=== PATIENT | male | born 1965 | race Caucasian/White ===

== ENCOUNTER → 2024-01-17 | Outpatient (CLI) | payer OTHER ==
[2024-01-17 09:03] VITALS: BP 118/71; PULSE 78; RESP 17
--- NOTE | 2024-01-17 14:42 | P.PAINPG ---
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 Pt states pain level is provoked at 8 /10 in intensity, constant, localized in the cervical spine, predominantly axial, sharp in character w occasional shooting pain towards the BL shoulders. Pain is provoked by head movement and PT x 2 wks in Sep 2023 which provoked pain. Pain is alleviated by physician guided home exercises 4 times weekly since Sep 2023, medications, manual massage, repositioning and rest . PMH: OA, HTN, Hyperlipidemia, NIDDM II, GERD, BPH, Vitamin D Deficiency PSH: Appendectomy (1974), R Digit Amputation x2 (1975), Cholecystectomy (1989), L Breast Biopsy (2009), Hernia Repair x2 (2022) SH: Negative x3 FH: Non contributory All: See list Meds: See list including Tyl, Celebrex, Lyrica REVIEW OF ORGAN SYSTEMS: CONSTITUTIONAL: No fevers or chills. No recent weight loss. NEUROLOGICAL: + numbness and tingling along the distal extremities. No seizure disorders or headaches. MUSCULOSKELETAL: + pain PSYCHIATRIC: Denies current depression or suicidal thoughts. Physical Examinations : Constitutional : Cooperative , not in acute distress . Neurologic : Cranial nerve II to XII intact. No focal neurological deficits. Psychiatric : alert & oriented x 3. Matching mood & appropriate affect. Judgment & insight intact. Musculoskeletal : Cervical Spine Motor strength in the deltoid and biceps: Normal right side. Normal Left side Motor strength biceps and the wrist extensors: Normal right side . Normal left side Motor strength in the triceps muscle: Normal right side. Normal left side Deep tendon reflexes: Normal at the biceps. Normal at Brachioradialis. Normal at triceps Vertebral body tenderness to deep palpation over Cervical facet loading test: positive bilaterally Spurling test: positive bilaterally Neck distraction test: positive b ilaterally Saad sign: positive bilaterally Lumbar spine Motor strength lower extremities ,thigh and legs 5/5 Right side , 5/5 Left side Deep tendon reflexes : Normal Knee Jerk. Normal Ankle Jerk Vertebral body tenderness over C6 Marquez Test positive C6-C7 L > R Lumbar facet Loading Test: positive Right / positive Left Range of motion of the lumbar spine Flexion 30 degrees, extension 10 degrees Straight Leg Raise test: Left/ Right positive at degrees Jason test: positive right / positive left. Severe tenderness over the Sacroiliac joint on the Right / Left sides Gaenslen test: positive bilaterally Seated flexion test: positive bilaterally. Sacral spine : Severe tenderness over the Sacroiliac joint: right side / left side Range of motion: Flexion of the lumbar spine <60 degrees Range of motion: Extension of the lumbar spine <20 degrees Gaenslen's Test positive Jason test: positive right side / left side Thigh Thrust Test Sacral Thrust Test Imaging: MRI non contrast cervical spine from 12/06/23 reviewed Assessment/ Plan : Cervical radiculopathy Recommendation of FRANCHESCA .C6-C7 #1 Risks, benefits of procedure discussed and patient verbalized understanding. Admits to anti- coagulant use or medical history of diabetes. Protocol for discontinuation/ continuation of medications zackery procedure discussed. All questions answered. I have spent greater than 30 minutes on patient care today. Dr Grover was available by phone for the evaluation of this patient. The time was used to review the medical records including relevant urine studies and Prescription history (MAPs), review of the available imaging, evaluation and examination of the patient, coordination of care with the medical staff and if applicable referring physicians, as well as creation of the medical record Controlled Substance Measures - Controlled Substance Measures Is patient prescribed a controlled substance at discharge?: No
== END ==
LOC: PNWHC3 08:11
PROVIDERS: ATTEND Specialist
DX: M47.892 Other spondylosis, cervical region
CPT/HCPCS: 99202

== ENCOUNTER 2024-02-02 06:23 | Day surgery (SDC) | payer OTHER ==
[2024-02-02] MEDS ORDERED: LACTATED RINGERS 1,000 ML IV SCH (07:15)
[2024-02-02 07:34] VITALS: TEMP 98.1
[2024-02-02 07:39] LABS: Glucose,Whole Blood 277 mg/dL (70-110)
[2024-02-02] MEDS: INSULIN ASPART (NovoLOG) 100 UNIT/ML VIAL SQ ONE (07:47)
[2024-02-02] MEDS ORDERED: IOPAMIDOL M200 10 ML VIAL ONE (07:54)
[2024-02-02] MEDS ORDERED: DEXAMETHASONE SOD PHOSPHATE 10 MG/ML 1 ML VIAL ONE (07:54)
--- NOTE | 2024-02-02 08:09 | P.PCN ---
Date of Procedure: 02/02/24 Description of Procedure: Pre- and Post-operative Diagnosis: Cervical radiculopathy, and cervical spondylosis without myelopathy Procedure: C6-C7 Inter-Laminar Cervical Epidural Steroid Injection under biplanar fluoroscopy Surgeon: Amber Lopez Anesthesia: Local: 1% Lidocaine, IV sedation : None. Complications: None. Estimated blood loss: None Specimens removed: None Fluoroscopic image: saved to patient electronic medical records. Indications for Procedure: The patient has been suffering from neck pain and pain radiating to the upper extremity . Inadequate pain control with pharmacologic regimen. An inter-laminar approach cervical epidural steroid injection was scheduled for the patient. Procedure and Findings: The patient was seen and examined in the holding area. The written informed consent was obtained after explaining the risks, benefits, alternatives of the procedure to the patient. The patient was brought to the procedure room and was placed in the prone position on the operating table. A pillow was placed under the upper chest. Standard anesthesia monitoring was done through out the procedure. Timeout was completed. The skin preparation was done with ChloraPrep 1 and draping was done in usual sterile fashion. Sterile technique was observed throughout the procedure. Under fluoroscopic guidance, the C6-C7 inter-laminar space was identified. 4 ml of 1% Lidocaine was injected with a 25 gauge needle to achieve adequate local anesthesia of the skin and subcutaneous tissue. A 20 gauge, 3.5 inch Tuohy type epidural needle was placed and gradually advanced up to the epidural space using loss of resistance technique and fluoroscopic guidance. No paresthesia was noted. A negative aspiration was confirmed and then 1 ml [id number] was injected. A good dye spread was seen in the epidural space and it was negative for any intrathecal, intraneural or intravascular spread. A total of 5 ml solution containing 10 mg Dexamethasone, and 4 ml preservative-free Normal Saline was injected slowly with intermittent aspiration.. The needle was removed intact, area was cleaned and bandage was applied. Disposition : The patient tolerated the procedure very well. The patient was transferred to the recovery room and remained stable until discharged home. The patient was given detailed discharge instructions for bleeding, infection, increased pain at the injection site, and was advised to seek immediate medical attention should significant side effects develop. The patient will be followed up with our Pain Clinic within 4 weeks duration. Note: History of diabetes, and his morning blood sugar 277 mg %. He did not take his morning insulin dose after his breakfast today. He was given 4 units of regular insulin in the preop. And recommended him to monitor his blood sugars for next 1 week, and recommended to adjust insulin accordingly to control his blood sugars. Discussed with the patient regarding the cancellation of the procedure but he would like to proceed for the procedure and to see if it is helpful, so that he can make a decision to avoid cervical spine surgery.
[2024-02-02 08:19] LABS: Glucose,Whole Blood 267 mg/dL (70-110)
--- NOTE | 2024-02-02 08:33 | FL ---
EXAMINATION TYPE: FL guided pain mgmt statistic DATE OF EXAM: 02/02/2024 8:11 AM COMPARISON: Pre Operative Images if available both CT/MRI or plain film CLINICAL INDICATION: Male, 58 years old with history of M54.12; TECHNIQUE: FL guided pain mgmt statistic, multiple fluoroscopic images provided for procedure. Total fluoroscopy time: 14.0 seconds Total submitted images to PACS: 4 DAP: 0.19149 mGym2 Gycm2 uGym2 cGycm2 or equivalent. FINDINGS: Fluoroscopic images during injection for pain management demonstrate multilevel degeneration changes throughout the spine. No evidence for fracture. No acute process identified. IMPRESSION: 1. No evidence for intraoperative complication. 2. Please see the operative/procedural note for further details. [facility], , 02/02/2024 8:31 AM
[2024-02-02 09:01] VITALS: BP 158/84; PULSE 74; RESP 18
== END 2024-02-02 09:07 | disposition home or self-care (01) ==
LOC: ORPAIN 06:23
DX: M54.12 Radiculopathy, cervical region
CPT/HCPCS: 62321

== ENCOUNTER → 2024-02-22 | Outpatient (CLI) | payer OTHER ==
[2024-02-22 09:21] VITALS: BP 160/83; PULSE 87; RESP 16
--- NOTE | 2024-02-22 14:46 | P.PAINPG ---
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 Pt states he experienced 30 % pain relief x 3 wks s/p procedure. Pt states pain level is provoked at 8 /10 in intensity, constant, localized in the cervical spine, predominantly axial, sharp in character w occasional shooting pain towards the BL shoulders. Pain is provoked by head movement and PT x 2 wks in Sep 2023 which provoked pain. Pain is alleviated by physician guided home exercises 4 times weekly since Sep 2023, medications, manual massage, repositioning and rest . Interventional procedures include FRANCHESCA C6-C7 x1 Medications include Tyl, Celebrex REVIEW OF ORGAN SYSTEMS: CONSTITUTIONAL: No fevers or chills. No recent weight loss. NEUROLOGICAL: + numbness and tingling along the distal extremities. No seizure disorders or headaches. MUSCULOSKELETAL: + pain PSYCHIATRIC: Denies current depression or suicidal thoughts. Physical Examinations : Constitutional : Cooperative , not in acute distress . Neurologic : Cranial nerve II to XII intact. No focal neurological deficits. Psychiatric : alert & oriented x 3. Matching mood & appropriate affect. Judgment & insight intact. Musculoskeletal : Cervical Spine Motor strength in the deltoid and biceps: Normal right side. Normal Left side Motor strength biceps and the wrist extensors: Normal right side . Normal left side Motor strength in the triceps muscle: Normal right side. Normal left side Deep tendon reflexes: Normal at the biceps. Normal at Brachioradialis. Normal at triceps Vertebral body tenderness to deep palpation over Cervical facet loading test: positive bilaterally C4-C5, C5-C6 Spurling test: positive bilaterally Neck distraction test: positive bilaterally Saad sign: positive bilaterally Lumbar spine Motor strength lower extremities ,thigh and legs 5/5 Right side , 5/5 Left side Deep tendon reflexes : Normal Knee Jerk. Normal Ankle Jerk Vertebral body tenderness over C6 Marquez Test positive C6-C7 L > R Lumbar facet Loading Test: positive Right / positive Left Range of motion of the lumbar spine Flexion 30 degrees, extension 10 degrees Straight Leg Raise test: Left/ Right positive at degrees Jason test: positive right / positive left. Severe tenderness over the Sacroiliac joint on the Right / Left sides Gaenslen test: positive bilaterally Seated flexion test: positive bilaterally. Sacral spine : Severe tenderness over the Sacroiliac joint: right side / left side Range of motion: Flexion of the lumbar spine <60 degrees Range of motion: Extension of the lumbar spine <20 degrees Gaenslen's Test positive Jason test: positive right side / left side Thigh Thrust Test Sacral Thrust Test Imaging: MRI non contrast cervical spine from 12/06/23 reviewed Assessment/ Plan : Cervical radiculopathy Recommendation of HAYLEY MBB C4-C5/ C5-C6 #1. Risks, benefits of procedure discussed and patient verbalized understanding. Admits to anti- coagulant use or medical history of diabetes. Protocol for discontinuation/ continuation of medications zackery procedure discussed. Minimal anesthesia including Fentanyl and Versed if clinically indicated. All questions answered. I have spent greater than 30 minutes on patient care today. Dr Grover was available by phone for the evaluation of this patient. The time was used to review the medical records including relevant urine studies and Prescription history (MAPs), review of the available imaging, evaluation and examination of the patient, coordination of care with the medical staff and if applicable referring physicians, as well as creation of the medical record PQRS Narrative: Hx Alcohol Use (MH) No Home Medications: Ambulatory Orders Aspirin [[place] Aspirin EC] 81 mg PO DAILY 01/31/24 Atorvastatin Calcium 40 mg PO HS 01/31/24 Azelastine HCl [Astepro] 1 spray INHALATION DAILY 01/31/24 Celecoxib [CeleBREX] 200 mg PO DAILY 01/31/24 Cholecalciferol [Vitamin D3 (25 Mcg = 1000 Iu)] 1 tab PO DAILY 01/31/24 Dicyclomine HCl 20 mg PO BID 01/31/24 Dulaglutide [Trulicity] 0.75 mg SQ Q7D 01/31/24 Dupilumab [Dupixent Pen] 300 mg SQ Q14D 01/31/24 Famotidine 40 mg PO HS 01/31/24 Insulin Glargine,Hum.rec.anlog [Lantus Solostar Pen] 60 units SQ QAM 01/31/24 Insulin Lispro [humaLOG Kwikpen] 15 units SQ BID 01/31/24 Losartan/Hydrochlorothiazide [Hyzaar 100-25 Tablet] 1 tab PO QAM 01/31/24 Magnesium 1 tab PO DAILY 01/31/24 Metoprolol Succinate (ER) [Toprol XL] 100 mg PO QAM 01/31/24 NIFEdipine [NIFEdipine ER (Osmotic)] 60 mg PO DAILY 01/31/24 Pantoprazole [Protonix] 1 tab PO HS 01/31/24 Sildenafil Citrate 50 mg PO DAILY PRN 01/31/24 Controlled Substance Measures - Controlled Substance Measures Is patient prescribed a controlled substance at discharge?: No
== END ==
LOC: PNWHC3 08:24
PROVIDERS: ATTEND Specialist
CPT/HCPCS: 99211

== ENCOUNTER 2024-03-08 06:42 | Day surgery (SDC) | payer OTHER ==
[2024-03-08 07:36] VITALS: RESP 16; TEMP 96.8
[2024-03-08] MEDS: LACTATED RINGERS 1,000 ML IV SCH (07:50)
[2024-03-08] MEDS: IV FLUID CONTINUATION 1,000 ML IV ONE (07:50)
[2024-03-08] MEDS ORDERED: ROPIVACAINE 5MG/ML 20ML VIAL ONE (08:00)
[2024-03-08] MEDS ORDERED: MIDAZOLAM 2 MG/2 ML VIAL ONE (08:00)
[2024-03-08 08:11] LABS: Glucose,Whole Blood 141 mg/dL (70-110)
--- NOTE | 2024-03-08 08:24 | P.PCN ---
Date of Procedure: 03/08/24 Surgeon: Wm Lion Pathology: none sent Condition: stable Disposition: PACU Description of Procedure: PROCEDURE: Bilateral medial branch block for the medial branches: C4,C5 and C6 with Fluroscopy [place] Diagnosis: Cervical spondylosis without myelopathy ANESTHESIA: Local with 1% lidocaine; IV moderate conscious sedation using 3 mg of Versed only EBL: Minimal PROCEDURE INDICATION: The patient with neck pain secondary to cervical arthropathy who had more than 50% relief of her pain with previous diagnostic cervical medial branch block. PROCEDURE DESCRIPTION / TECHNIQUE: The patient was seen and identified in the preoperative area. Risks, benefits, complications, and alternatives were discussed with the patient, the patient agreed to proceed with the procedure and signed the consent. IV was started. Vital signs remained stable throughout the procedure. Patient was taken to the OR and time out was completed. The patient was placed in the supine position on the procedure table. The cervical area was prepped and draped in the usual sterile fashion. Critical pause was taken. Vital signs were closely monitored during the procedure. Conscious sedation was used during the procedure to decrease patients anxiety. Using cross-table lateral fluoroscopy, the center of the trapezoid-shaped cervical pillars of C4, C5 and C6 were identified, marked, and localized with 1% lidocaine. Subsequently, a 22 guage3-1/2 inch Quincke spinal needle was advanced guided by fluoroscopy to the target points mentioned above. after contacting bone at the above-mentioned target points I injected 0.5 MLS of ropivacaine 0.5% at each level. [place] were removed. Skin was cleansed and bandages were applied. COMPLICATIONS: No acute complications. COMMENTS: A copy of needle placement was saved to the C-arm machine at the radiology department. DISPOSITION / PLANS: The patient was placed in a supine position and transferred to the recovery area in a stable condition for observation and was discharged from the recovery room after meeting discharge criteria. Home discharge instructions given to the patient by the staff.
[2024-03-08] MEDS: IV FLUID CONTINUATION 700 ML IV ONE (08:27)
--- NOTE | 2024-03-08 08:36 | FL ---
EXAMINATION TYPE: FL guided pain mgmt statistic DATE OF EXAM: 03/08/2024 HISTORY: Fluoroscopy time Total dose area product (DAP) in uGy*m?, mGy*cm? (or similar): 0.95845 IMPRESSION: 1. Fluoroscopy time. [facility], , 03/08/2024 8:33 AM
[2024-03-08 08:48] VITALS: BP 133/80; PULSE 71
== END 2024-03-08 09:01 | disposition home or self-care (01) ==
LOC: ORPAIN 06:42
PROVIDERS: ATTEND Anesthesiology
DX: M47.812 Spondylosis without myelopathy or radiculopathy, cervical region (principal); E11.9 Type 2 diabetes mellitus without complications; Z79.1 Long term (current) use of non-steroidal anti-inflammatories (NSAID); Z88.0 Allergy status to penicillin; Z88.2 Allergy status to sulfonamides; Z91.030 Bee allergy status; Z88.8 Allergy status to other drugs, medicaments and biological substances; Z79.899 Other long term (current) drug therapy
CPT/HCPCS: 64490; 64491 ×2; J2250; J2795; 99152

== ENCOUNTER → 2024-04-01 | Outpatient (CLI) | payer OTHER ==
[2024-04-01 08:57] VITALS: BP 165/89; PULSE 90; RESP 16
--- NOTE | 2024-04-01 16:19 | P.PAINPG ---
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 Pt states he experienced 50 % pain relief x 8 hr s/p procedure. Pt states pain level is provoked at 8 /10 in intensity, constant, localized in the cervical spine, predominantly axial, sharp in character w occasional shooting pain towards the BL shoulders. Pain is provoked by head movement and PT x 2 wks in Sep 2023 which provoked pain. Pain is alleviated by physician guided home exercises 4 times weekly since Sep 2023, medications, manual massage, repositioning and rest . Interventional procedures include FRANCHESCA C6-C7 x1, BL MBB C4-C5/ C5-C6 x1 Medications include Tyl, Celebrex REVIEW OF ORGAN SYSTEMS: CONSTITUTIONAL: No fevers or chills. No recent weight loss. NEUROLOGICAL: + numbness and tingling along the distal extremities. No seizure disorders or headaches. MUSCULOSKELETAL: + pain PSYCHIATRIC: Denies current depression or suicidal thoughts. Physical Examinations : Constitutional : Cooperative , not in acute distress . Neurologic : Cranial nerve II to XII intact. No focal neurological deficits. Psychiatric : alert & oriented x 3. Matching mood & appropriate affect. Judgment & insight intact. Musculoskeletal : Cervical Spine Motor strength in the deltoid and biceps: Normal right side. Normal Left side Motor strength biceps and the wrist extensors: Normal right side . Normal left side Motor strength in the triceps muscle: Normal right side. Normal left side Deep tendon reflexes: Normal at the biceps. Normal at Brachioradialis. Normal at triceps Vertebral body tenderness to deep palpation over Cervical facet loading test: positive bilaterally C4-C5, C5-C6 Spurling test: positive bilaterally Neck distraction test: positive bilaterally Saad sign: positive bilaterally Lumbar spine Motor strength lower extremities ,thigh and legs 5/5 Right side , 5/5 Left side Deep tendon reflexes : Normal Knee Jerk. Normal Ankle Jerk Vertebral body tenderness over C6 Marquez Test positive C6-C7 L > R Lumbar facet Loading Test: positive Right / positive Left Range of motion of the lumbar spine Flexion 30 degrees, extension 10 degrees Straight Leg Raise test: Left/ Right positive at degrees Jason test: positive right / positive left. Severe tenderness over the Sacroiliac joint on the Right / Left sides Gaenslen test: positive bilaterally Seated flexion test: positive bilaterally. Sacral spine : Severe tenderness over the Sacroiliac joint: right side / left side Range of motion: Flexion of the lumbar spine <60 degrees Range of motion: Extension of the lumbar spine <20 degrees Gaenslen's Test positive Jason test: positive right side / le ft side Thigh Thrust Test Sacral Thrust Test Imaging: MRI non contrast cervical spine from 12/06/23 reviewed Assessment/ Plan : Cervical radiculopathy Will follow up w Dr Dong on 04/03/24 to explore additional treatment options. All questions answered. I have spent greater than 30 minutes on patient care today. Dr Grover was available by phone for the evaluation of this patient. The time was used to review the medical records including relevant urine studies and Prescription history (MAPs), review of the available imaging, evaluation and examination of the patient, coordination of care with the medical staff and if applicable referring physicians, as well as creation of the medical record PQRS Narrative: Hx Alcohol Use (MH) No Home Medications: Ambulatory Orders Aspirin [[place] Aspirin EC] 81 mg PO DAILY 01/31/24 Atorvastatin Calcium 40 mg PO HS 01/31/24 Azelastine HCl [Astepro] 1 spray INHALATION BID 01/31/24 Cholecalciferol [Vitamin D3 (25 Mcg = 1000 Iu)] 1 tab PO DAILY 01/31/24 Dicyclomine HCl 20 mg PO BID 01/31/24 Dulaglutide [Trulicity] 0.75 mg SQ Q7D 01/31/24 Dupilumab [Dupixent Pen] 300 mg SQ Q14D 01/31/24 Famotidine 40 mg PO HS 01/31/24 Insulin Glargine,Hum.rec.anlog [Lantus Solostar Pen] 60 units SQ QAM 01/31/24 Insulin Lispro [humaLOG Kwikpen] 15 units SQ BID 01/31/24 Losartan/Hydrochlorothiazide [Hyzaar 100-25 Tablet] 1 tab PO QAM 01/31/24 Magnesium 1 tab PO DAILY 01/31/24 Metoprolol Succinate (ER) [Toprol XL] 100 mg PO QAM 01/31/24 NIFEdipine [NIFEdipine ER (Osmotic)] 60 mg PO DAILY 01/31/24 Pantoprazole [Protonix] 1 tab PO HS 01/31/24 Sildenafil Citrate 50 mg PO DAILY PRN 01/31/24 Albuterol Inhaler [Ventolin Hfa Inhaler] 90 mcg IH DAILY PRN 03/08/24 Albuterol Nebulized [Ventolin Nebulized] 2.5 mg INHALATION Q6H 03/08/24 Celecoxib 200 mg PO BID 03/08/24 Cetirizine HCl 10 mg PO DAILY 03/08/24 Clotrimazole [Clotrimazole 1% Top Soln] 1 applic TOPICAL BID 03/08/24 Cyclobenzaprine [Flexeril] 5 mg PO TID PRN 03/08/24 EPINEPHrine (Auto Inject) [Epipen] 0.3 mg IM ONCE PRN 03/08/24 Ezetimibe [Zetia] 10 mg PO DAILY 03/08/24 Meclizine [Antivert] 25 mg PO TID PRN 03/08/24 Mupirocin 2% Oint [Bactroban 2% Oint] 1 applic NASAL BID 03/08/24 Ondansetron [Zofran] 4 mg PO QID PRN 03/08/24 Orphenadrine Citrate [Orphenadrine Citrate ER] 100 mg PO BID 03/08/24 Pioglitazone [Actos] 15 mg PO DAILY 03/08/24 Pregabalin 50 mg PO BID 03/08/24 Spironolactone 50 mg PO DAILY 03/08/24 Tamsulosin [Flomax] 0.4 mg PO DAILY 03/08/24 cloNIDine HCL 0.2 mg PO BID 03/08/24 hydrOXYzine HCL [Hydroxyzine HCl] 25 mg PO HS 03/08/24 hydroCHLOROthiazide 25 mg PO DAILY 03/08/24 traMADol HCl [Ultram] 50 mg PO Q6HR PRN 03/08/24 Controlled Substance Measures - Controlled Substance Measures Is patient prescribed a controlled substance at discharge?: No
== END ==
LOC: PNWHC3 08:16
PROVIDERS: ATTEND Specialist
DX: M47.22 Other spondylosis with radiculopathy, cervical region (principal); Z91.030 Bee allergy status; Z88.0 Allergy status to penicillin; Z88.1 Allergy status to other antibiotic agents; Z88.2 Allergy status to sulfonamides; Z88.8 Allergy status to other drugs, medicaments and biological substances
CPT/HCPCS: 99211

== ENCOUNTER 2024-05-06 15:46 | Emergency (ER) | payer OTHER ==
--- NOTE | 2024-05-06 16:34 | ED ---
Recheck HPI - General Source: patient <Virgen Washburn - Last Filed: 05/06/24 16:34> - General Source: RN notes reviewed, old records reviewed - History of Present Illness MD Complaint: other (Abnormal blood pressure) Symptoms Since Prior Visit: no new symptoms Associated Symptoms: none Treatments Prior to Arrival: other (0) <Nacho Trevino - Last Filed: 05/06/24 18:46> - General Stated Complaint: High BP Time Seen by Provider: 05/06/24 16:32 - History of Present Illness Initial Comments: Quick [id number] male presenting for elevated blood pressure. States he has been taking his losartan/hydrochlorothiazide as prescribed however still reports high readings in both arms. He cannot recall how high his blood pressure was at his PCP this morning. Denies chest pain, shortness of breath. He does endorse some lightheadedness as he was walking down the stairs today. He does have a history of a pacemaker. Denies blood thinners. (Virgen Washburn) This is a 58 male to ER for evaluation of elevated blood pressure with recent changes in outpatient blood pressure management. Also occasional dizziness. Patient does have a complicated medical history feels improved here in the ER (Nacho Trevino) - Related Data Home Medications Medication Instructions Recorded Confirmed Aspirin [Bartow Aspirin EC] 81 mg PO DAILY 01/31/24 03/05/24 Atorvastatin Calcium 40 mg PO HS 01/31/24 03/08/24 Azelastine HCl [Astepro] 1 spray INHALATION BID 01/31/24 03/08/24 Cholecalciferol [Vitamin D3 (25 1 tab PO DAILY 01/31/24 03/08/24 Mcg = 1000 Iu)] Dicyclomine HCl 20 mg PO BID 01/31/24 03/08/24 Dulaglutide [Trulicity] 0.75 mg SQ Q7D 01/31/24 03/05/24 Dupilumab [Dupixent Pen] 300 mg SQ Q14D 01/31/24 03/08/24 Famotidine 40 mg PO HS 01/31/24 03/08/24 Insulin Glargine,Hum.rec.anlog 60 units SQ QAM 01/31/24 03/08/24 [Lantus Solostar Pen] Insulin Lispro [humaLOG Kwikpen] 15 units SQ BID 01/31/24 03/08/24 Losartan/Hydrochlorothiazide 1 tab PO QAM 01/31/24 03/08/24 [Hyzaar 100-25 Tablet] Magnesium 1 tab PO DAILY 01/31/24 03/08/24 Metoprolol Succinate (ER) [Toprol 100 mg PO QAM 01/31/24 03/08/24 XL] NIFEdipine [NIFEdipine ER 60 mg PO DAILY 01/31/24 03/08/24 (Osmotic)] Pantoprazole [Protonix] 1 tab PO HS 01/31/24 03/08/24 Sildenafil Citrate 50 mg PO DAILY PRN 01/31/24 03/08/24 Albuterol Inhaler [Ventolin Hfa 90 mcg IH DAILY PRN 03/08/24 03/08/24 Inhaler] Albuterol Nebulized [Ventolin 2.5 mg INHALATION Q6H 03/08/24 03/08/24 Nebulized] Celecoxib 200 mg PO BID 03/08/24 03/08/24 Cetirizine HCl 10 mg PO DAILY 03/08/24 03/08/24 Clotrimazole [Clotrimazole 1% Top 1 applic TOPICAL BID 03/08/24 03/08/24 Soln] Cyclobenzaprine [Flexeril] 5 mg PO TID PRN 03/08/24 03/08/24 EPINEPHrine (Auto Inject) [Epipen] 0.3 mg IM ONCE PRN 03/08/24 03/08/24 Ezetimibe [Zetia] 10 mg PO DAILY 03/08/24 03/08/24 Meclizine [Antivert] 25 mg PO TID PRN 03/08/24 03/08/24 Mupirocin 2% Oint [Bactroban 2% 1 applic NASAL BID 03/08/24 03/08/24 Oint] Ondansetron [Zofran] 4 mg PO QID PRN 03/08/24 03/08/24 Orphenadrine Citrate [Orphenadrine 100 mg PO BID 03/08/24 03/08/24 Citrate ER] Pioglitazone [Actos] 15 mg PO DAILY 03/08/24 03/08/24 Pregabalin 50 mg PO BID 03/08/24 03/08/24 Spironolactone 50 mg PO DAILY 03/08/24 03/08/24 Tamsulosin [Flomax] 0.4 mg PO DAILY 03/08/24 03/08/24 cloNIDine HCL 0.2 mg PO BID 03/08/24 03/08/24 hydrOXYzine HCL [Hydroxyzine HCl] 25 mg PO HS 03/08/24 03/08/24 hydroCHLOROthiazide 25 mg PO DAILY 03/08/24 03/08/24 traMADol HCl [Ultram] 50 mg PO Q6HR PRN 03/08/24 03/08/24 Allergies Allergy/AdvReac Type Severity Reaction Status Date / Time bee pollen Allergy Anaphylaxis Verified 05/06/24 16:37 cephalexin [From Keflex] Allergy Rash/Hives Verified 05/06/24 16:37 lisinopril Allergy Anaphylaxis Verified 05/06/24 16:37 Penicillins Allergy Anaphylaxis Verified 05/06/24 16:37 Sulfa (Sulfonamide Allergy Rash/Hives Verified 05/06/24 16:37 Antibiotics) sulfamethoxazole Allergy Rash/Hives Verified 05/06/24 16:37 [From Bactrim] trimethoprim [From Bactrim] Allergy Rash/Hives Verified 05/06/24 16:37 Review of Systems ROS Other: All systems not noted in ROS Statement are negative. <Virgen Washburn - Last Filed: 05/06/24 16:34> ROS Other: All systems not noted in ROS Statement are negative. <Nacho Trevino - Last Filed: 05/06/24 18:46> ROS Statement: Those systems with pertinent positive or pertinent negative responses have been documented in the HPI. Past Medical History Past Medical History: COPD, Diabetes Mellitus, GERD/Reflux, Hyperlipidemia, Hypertension Additional Past Medical History / Comment(s): pinched nerve L3-4, DDD, Type II DM, PPM, hx. bilat. leg cellulitis - none currently, hx. - infected scrotum - resolved History of Any Multi-Drug Resistant Organisms: None Reported Past Surgical History: Appendectomy, Breast Surgery, Cholecystectomy, Pacemaker Additional Past Surgical History / Comment(s): ventral hernia repair 2022, Lt. 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 Absent: scleral icterus, conjunctival injection, periorbital swelling ENT exam: Present: normal exam, mucous membranes moist Neck exam: Present: normal inspection. Absent: tenderness, meningismus, lymphadenopathy Respiratory exam: Present: normal lung sounds bilaterally. Absent: respiratory distress, wheezes, rales, rhonchi, stridor Cardiovascular Exam: Present: regular rate, normal rhythm, normal heart sounds. Absent: systolic murmur, diastolic murmur, rubs, gallop, clicks GI/Abdominal exam: Present: soft, normal bowel sounds. Absent: distended, tenderness, guarding, rebound, rigid Extremities exam: Present: normal inspection, full ROM, normal capillary refill. Absent: tenderness, pedal edema, joint swelling, calf tenderness Back exam: Present: normal inspection Neurological exam: Present: alert, oriented X3, CN II-XII intact Psychiatric exam: Present: normal affect, normal mood Skin exam: Present: warm, dry, intact, normal color. Absent: rash <Nacho Trevino - Last Filed: 05/06/24 18:46> - General Exam Comments Initial Comments: Visual Physical Exam General: Well-appearing, nontoxic, no acute distress. Head: Normocephalic, atraumatic Eyes: PERRLA, EOMI ENT: Airway patent Chest: Nonlabored breathing Skin: No visual rash, normal skin tone Neuro: Alert and oriented 3 Musculoskeletal: No gross abnormalities (Virgen Washburn) Course <Nacho Trevino - Last Filed: 05/06/24 18:46> Vital Signs 05/06/24 16:34 Temperature 98.5 F Pulse Rate 90 Respiratory 18 Rate Blood Pressure 140/75 O2 Sat by Pulse 98 Oximetry - Reevaluation(s) Reevaluation #1: 05/06/24 18:44 Medical records reviewed (Nacho Trevino) Reevaluation #2: 05/06/24 18:45 Patient symptoms improved without medication (Nacho Trevino) Reevaluation #3: 05/06/24 18:45 Patient informed of results questions answered (Nacho Trevino) Reevaluation #4: Was pt. sent in by a medical professional or institution ([facility], PENOLOGY PROFESSOR, urgent care, hospital, or long term...) When possible be specific @ -no Did you speak to anyone other than the patient for history (EMS, parent, family, police, friend...)? What history was obtained from this source @ -no Did you review nursing and triage notes (agree or disagree)? Why? @ -agree Are old charts reviewed (outside hosp., previous admission, EMS record, old EKG, old radiological studies, urgent care reports/EKG's, long term records)? Report findings @ -yes Differential Diagnosis (chest pain, altered mental status, abdominal pain women, abdominal pain men, vaginal bleeding, weakness, fever, dyspnea, syncope, headach e, dizziness, GI bleed, back pain, seizure, CVA, palpatations, mental health, musculoskeletal)? @ -prior EKG interpreted by me (3pts min.). @ -yes X-rays interpreted by me (1pt min.). @ -yes negative for acute disease CT interpreted by me (1pt min.). @ -no U/S interpreted by me (1pt. min.). @ -no What testing was considered but not performed or refused? (CT, X-rays, U/S, labs)? Why? @ -none What meds were considered but not given or refused? Why? @ -none Did you discuss the management of the patient with other professionals (professionals i.e. [facility], PENOLOGY PROFESSOR, lab, RT, psych nurse, social sciences research scientist, lead designer, teacher, sales and service officer, housing case manager)? Give summary @ -no Was smoking cessation discussed for >3mins.? @ -no Was critical care preformed (if so, how long)? @ -no Were there social determinants of health that impacted care today? How? (Homelessness, low income, unemployed, alcoholism, drug addiction, transportation, low edu. Level, literacy, decrease access to med. care, long-term, r ehab)? @ -none Was there de-escalation of care discussed even if they declined (Discuss DNR or withdrawal of care, Hospice)? DNR status @ -no What co-morbidities impacted this encounter? (DM, HTN, Smoking, COPD, CAD, Cancer, CVA, ARF, Chemo, Hep., AIDS, mental health diagnosis, sleep apnea, morbid obesity)? @ -none Was patient admitted / discharged? Hospital course, mention meds given and route , prescriptions, significant lab abnormalities, going to OR and other pertinent info. @ - Undiagnosed new problem with uncertain prognosis? @ -no Drug Therapy requiring intensive monitoring for toxicity (Heparin, Nitro, Insulin, Cardizem)? @ -no Were any procedures done? @ -no Diagnosis/symptom? @ - Acute, or Chronic, or Acute on Chronic? @ -Acute Uncomplicated (without systemic symptoms) or Complicated (systemic symptoms)? @ -Complicated Side effects of treatment? @ -no Exacerbation, Progression, or Severe Exacerbation? @ -exacerbation Poses a threat to life or bodily function? How? (Chest pain, [place], [place], pneumonia, PE, COPD, DKA, ARF, appy, cholecystitis, CVA, Diverticulitis, Homicidal, Suicidal, threat to staff... and all critical care pts) @ -yes (Nacho Trevino) Reevaluation #5: Differential Dizziness: Benign paroxysmal positional Vertigo, Meniere's disease, otitis media, acoustic neuroma, vertebrobasilar insufficiency, cerebellar stroke, encephalitis, hypovolemic, arrhythmia, coronary artery syndrome, anemia, this is not meant to be an all-inclusive list (Nacho Trevino) Medical Decision Making <Virgen Washburn - Last Filed: 05/06/24 16:34> - Lab Data Result diagrams: 05/06/24 17:26 05/06/24 17:26 - EKG Data -: EKG Interpreted by Me - Radiology Data Radiology results: report reviewed (Chest x-ray is negative for acute disease), image reviewed <Nacho Trevino - Last Filed: 05/06/24 18:46> - Medical Decision Making I completed the quick note portion of this chart signed Virgen Washburn PA-C (Virgen Washburn) 58 male to the ER for evaluation of significant dizziness, blood pressure elevation normalized here in the ER patient feels well can be discharged home (Nacho Trevino) - Lab Data Lab Results 05/06/24 05/06/24 05/06/24 Range/Units 17:26 17:26 17:26 WBC 8.4 (3.8-10.6) k/uL RBC 4.79 (4.30-5.90) m/uL Hgb 15.2 (13.0-17.5) gm/dL Hct 44.1 (39.0-53.0) % MCV 92.2 (80.0-100.0) fL MCH 31.8 (25.0-35.0) pg MCHC 34.5 (31.0-37.0) g/dL RDW 12.7 (11.5-15.5) % Plt Count 180 (150-450) k/uL MPV 7.9 Neutrophils % 63 % Lymphocytes % 29 % Monocytes % 5 % Eosinophils % 1 % Basophils % 0 % Neutrophils # 5.3 (1.3-7.7) k/uL Lymphocytes # 2.4 (1.0-4.8) k/uL Monocytes # 0.4 (0-1.0) k/uL Eosinophils # 0.1 (0-0.7) k/uL Basophils # 0.0 (0-0.2) k/uL PT 10.4 (10.0-12.5) sec INR 0.9 (<1.2) APTT 22.1 (22.0-30.0) sec Sodium 141 (137-145) mmol/L Potassium 4.1 (3.5-5.1) mmol/L Chloride 104 (98-107) mmol/L Carbon Dioxide 25 (22-30) mmol/L Anion Gap 12 mmol/L BUN 30 H (9-20) mg/dL Creatinine 1.05 (0.66-1.25) mg/dL Est GFR (CKD-EPI)AfAm 89 (>60 ml/min/1.73 sqM) Est GFR (CKD-EPI)NonAf 77 (>60 ml/min/1.73 sqM) Glucose 160 H (74-99) mg/dL Calcium 11.1 H (8.4-10.2) mg/dL Total Bilirubin 0.8 (0.2-1.3) mg/dL AST 24 (17-59) U/L ALT 28 (4-49) U/L Alkaline Phosphatase 126 (38-126) U/L Troponin I (0.000-0.034) ng/mL Total Protein 7.9 (6.3-8.2) g/dL Albumin 4.6 (3.5-5.0) g/dL 05/06/24 Range/Units 17:26 WBC (3.8-10.6) k/uL RBC (4.30-5.90) m/uL Hgb (13.0-17.5) gm/dL Hct (39.0-53.0) % MCV (80.0-100.0) fL MCH (25.0-35.0) pg MCHC (31.0-37.0) g/dL RDW (11.5-15.5) % Plt Count (150-450) k/uL MPV Neutrophils % % Lymphocytes % % Monocytes % % Eosinophils % % Basophils % % Neutrophils # (1.3-7.7) k/uL Lymphocytes # (1.0-4.8) k/uL Monocytes # (0-1.0) k/uL Eosinophils # (0-0.7) k/uL Basophils # (0-0.2) k/uL PT (10.0-12.5) sec INR (<1.2) APTT (22.0-30.0) sec Sodium (137-145) mmol/L Potassium (3.5-5.1) mmol/L Chloride (98-107) mmol/L Carbon Dioxide (22-30) mmol/L Anion Gap mmol/L BUN (9-20) mg/dL Creatinine (0.66-1.25) mg/dL Est GFR (CKD-EPI)AfAm (>60 ml/min/1.73 sqM) Est GFR (CKD-EPI)NonAf (>60 ml/min/1.73 sqM) Glucose (74-99) mg/dL Calcium (8.4-10.2) mg/dL Total Bilirubin (0.2-1.3) mg/dL AST (17-59) U/L ALT (4-49) U/L Alkaline Phosphatase (38-126) U/L Troponin I <0.012 (0.000-0.034) ng/mL Total Protein (6.3-8.2) g/dL Albumin (3.5-5.0) g/dL Disposition <Virgen Washburn - Last Filed: 05/06/24 16:34> Is patient prescribed a controlled substance at d/c from ED?: No Time of Disposition: 18:30 <Nacho Trevino - Last Filed: 05/06/24 18:46> Clinical Impression: Dizziness, Hypertension Disposition: HOME SELF-CARE Condition: Good Instructions (If sedation given, give patient instructions): Hypertension (ED) Referrals: Srinath Sharpe MD [Primary Care Provider] - 1-2 days
[2024-05-06 16:37] VITALS: RESP 18
--- NOTE | 2024-05-06 17:20 | XR ---
EXAMINATION TYPE: XR chest 2V DATE OF EXAM: 05/06/2024 5:15 PM COMPARISON: None. CLINICAL INDICATION: Male, 58 years old with history of hypertension, TECHNIQUE: Frontal and lateral views of the chest are obtained. FINDINGS: There is no focal air space opacity, pleural effusion, or pneumothorax seen. The cardiac silhouette size is within normal limits. A dual-lead pacemaker is noted. Cholecystectomy clips are se en. The osseous structures are intact. IMPRESSION: No acute cardiopulmonary process. [facility], , 05/06/2024 5:18 PM
[2024-05-06 17:42] LABS: Basophils % (A) 0 %; Eosinophils # (A) 0.1 k/uL (0-0.7); Eosinophils % (A) 1 %; HCT 44.1 % (39.0-53.0); HGB 15.2 gm/dL (13.0-17.5); Lymphocytes # (A) 2.4 k/uL (1.0-4.8); Lymphocytes % (A) 29 %; MCH 31.8 pg (25.0-35.0); MCHC 34.5 g/dL (31.0-37.0); MCV 92.2 fL (80.0-100.0); Mean Platelet Volume 7.9; Monocytes # (A) 0.4 k/uL (0-1.0); Monocytes % (A) 5 %; Neutrophils # (A) 5.3 k/uL (1.3-7.7); Neutrophils % (A) 63 %; Platelet Count 180 k/uL (150-450); RBC 4.79 m/uL (4.30-5.90); RDW 12.7 % (11.5-15.5); WBC 8.4 k/uL (3.8-10.6)
[2024-05-06 17:54] LABS: INR 0.9 (<1.2); Partial Thromboplastin Time 22.1 sec (22.0-30.0); Prothrombin Time 10.4 sec (10.0-12.5)
[2024-05-06 17:58] LABS: ALT 28 U/L (4-49); AST 24 U/L (17-59); African American GFR (CKD) 89 (>60 ml/min/1.73 sqM); Albumin 4.6 g/dL (3.5-5.0); Alkaline Phosphatase 126 U/L (38-126); Anion Gap 12 mmol/L; Blood Urea Nitrogen 30 mg/dL (9-20); Calcium 11.1 mg/dL (8.4-10.2); Carbon Dioxide 25 mmol/L (22-30); Chloride 104 mmol/L (98-107); Glucose 160 mg/dL (74-99); Non-African American GFR(CKD) 77 (>60 ml/min/1.73 sqM); Potassium 4.1 mmol/L (3.5-5.1); Sodium 141 mmol/L (137-145); Total Bilirubin 0.8 mg/dL (0.2-1.3); Total Protein 7.9 g/dL (6.3-8.2)
[2024-05-06 19:18] VITALS: BP 166/90; PULSE 80; TEMP 98.3
== END 2024-05-06 19:18 | disposition home or self-care (01) ==
LOC: EC 15:46
DX: I10 Essential (primary) hypertension (principal); R42 Dizziness and giddiness; Z87.891 Personal history of nicotine dependence; Z91.030 Bee allergy status; Z88.0 Allergy status to penicillin; Z88.2 Allergy status to sulfonamides; Z88.1 Allergy status to other antibiotic agents; Z88.8 Allergy status to other drugs, medicaments and biological substances
CPT/HCPCS: 36415; 71046; 80053; 84484; 85025; 85610; 85730; 93005; 99284

== ENCOUNTER → 2024-07-18 | Outpatient (CLI) | payer OTHER ==
[2024-07-18 10:39] VITALS: BP 159/92; PULSE 85; RESP 16; TEMP 96.8
--- NOTE | 2024-07-18 14:04 | P.PAINPG ---
PQRS Measure Charge Sheet Comment: HISTORY OF PRESENT ILLNESS: A 59 yr old male presents today w severe and chronic lower abd pain secondary to neuralgia for evaluation. Pt states pain level is provoked at 9 /10 in intensity, constant, localized in the cervical spine, predominantly axial, sore in character w occasional shooting pain towards the groin. Pain is provoked by standing from a sitting position and PT x 2 wks in Sep 2023 which provoked pain. Pain is alleviated by physician guided home exercises 4 times weekly since Sep 2023, medications, manual massage, repositioning and rest . Interventional procedures include FRANCHESCA C6-C7 x1, C4-C7 ACDF (06/25) Medications include Tyl, Celebrex REVIEW OF ORGAN SYSTEMS: CONSTITUTIONAL: No fevers or chills. No recent weight loss. NEUROLOGICAL: + numbness and tingling along the distal extremities. No seizure disorders or headaches. MUSCULOSKELETAL: + pain PSYCHIATRIC: Denies current depression or suicidal thoughts. Physical Examinations : Constitutional : Cooperative , not in acute distress . Neurologic : Cranial nerve II to XII intact. No focal neurological deficits. Psychiatric : alert & oriented x 3. Matching mood & appropriate affect. Judgment & insight intact. Musculoskeletal : Cervical Spine Motor strength in the deltoid and biceps: Normal right side. Normal Left side Motor strength biceps and the wrist extensors: Normal right side . Normal left side Motor strength in the triceps muscle: Normal right side. Normal left side Deep tendon reflexes: Normal at the biceps. Normal at Brachioradialis. Normal at triceps Vertebral body tenderness to deep palpation over Cervical facet loading test: positive bilaterally C4-C5, C5-C6 Spurling test: positive bilaterally Neck distraction test: positive bilaterally Saad sign: positive bilaterally Lumbar spine Abd BLQ TTP Motor strength lower extremities ,thigh and legs 5/5 Right side , 5/5 Left side Deep tendon reflexes : Normal Knee Jerk. Normal Ankle Jerk Vertebral body tenderness over C6 Marquez Test positive C6-C7 L > R Lumbar facet Loading Test: positive Right / positive Left Range of motion of the lumbar spine Flexion 30 degrees, extension 10 degrees Straight Leg Raise test: Left/ Right positive at degrees Jason test: positive right / positive left. Severe tenderness over the Sacroiliac joint on the Right / Left sides Gaenslen test: positive bilaterally Seated flexion test: positive bilaterally. Sacral spine : Severe tenderness over the Sacroiliac joint: right side / left side Range of motion: Flexion of the lumbar spine <60 degrees Range of motion: Extension of the lumbar spine <20 degrees Gaenslen's Test positive Jason test: positive right side / left side Thigh Thrust Test Sacral Thrust Test Imaging: MRI non contrast cervical spine from 12/06/23 reviewed Assessment/ Plan : Inguinal Neuralgia, C4-C7 ACDF Recommendation of Ganglion Impar Nerve Block #1. Risks, benefits of procedure discussed and patient verbalized understanding. Protocol for discontinuation/continuation of medication surrounding procedure discussed. Minimal anesthesia including Fentanyl and Versed if clinically indicated. All questions answered. I have spent greater than 30 minutes on patient care today. Dr Grover was available by phone for the evaluation of this patient. The time was used to review the medical records including relevant urine studies and Prescription history (MAPs), review of the available imaging, evaluation and examination of the patient, coordination of care with the medical staff and if applicable referring physicians, as well as creation of the medical record PQRS Narrative: Hx Alcohol Use (MH) No Home Medications: Ambulatory Orders Aspirin [Davis Aspirin EC] 81 mg PO DAILY 01/31/24 Atorvastatin Calcium 40 mg PO HS 01/31/24 Cholecalciferol [Vitamin D3 (25 Mcg = 1000 Iu)] 1 tab PO DAILY 01/31/24 Dicyclomine HCl 20 mg PO BID 01/31/24 Dulaglutide [Trulicity] 0.75 mg SQ Q7D 01/31/24 Dupilumab [Dupixent Pen] 300 mg SQ Q14D 01/31/24 Famotidine 40 mg PO HS 01/31/24 Insulin Glargine,Hum.rec.anlog [Lantus Solostar Pen] 50 units SQ QAM 01/31/24 Insulin Lispro [humaLOG Kwikpen] 10 units SQ BID 01/31/24 Losartan/Hydrochlorothiazide [Hyzaar 100-25 Tablet] 1 tab PO QAM 01/31/24 Magnesium 1 tab PO HS 01/31/24 Metoprolol Succinate (ER) [Toprol XL] 100 mg PO HS 01/31/24 Pantoprazole [Protonix] 1 tab PO HS 01/31/24 Sildenafil Citrate 50 mg PO DAILY PRN 01/31/24 Albuterol Inhaler [Ventolin Hfa Inhaler] 90 mcg IH DAILY PRN 03/08/24 Cetirizine HCl 10 mg PO DAILY 03/08/24 EPINEPHrine (Auto Inject) [Epipen] 0.3 mg IM ONCE PRN 03/08/24 Ezetimibe [Zetia] 10 mg PO DAILY 03/08/24 Orphenadrine Citrate [Orphenadrine Citrate ER] 100 mg PO BID 03/08/24 Pioglitazone [Actos] 15 mg PO DAILY 03/08/24 Pregabalin 50 mg PO BID 03/08/24 Tamsulosin [Flomax] 0.4 mg PO HS 03/08/24 hydrOXYzine HCL 25 mg PO HS 03/08/24 hydroCHLOROthiazide 25 mg PO HS 03/08/24 Cyclobenzaprine [Flexeril] 5 mg PO TID PRN #40 tablet 06/12/24 HYDROcodone/APAP 7.5-325MG [[place] 7.5] 1 each PO Q4HR PRN #42 tab 06/12/24 Naproxen 500 mg PO BID #28 tab 06/12/24 Sennosides/Docusate Sodium [Senna Plus 8.6-50 mg Tablet] 2 each PO DAILY PRN #30 tab 06/12/24 metroNIDAZOLE [Flagyl] 500 mg PO TID #15 tab 06/12/24 Controlled Substance Measures - Controlled Substance Measures Is patient prescribed a controlled substance at discharge?: No
== END ==
LOC: PNWHC3 08:43
PROVIDERS: ATTEND Specialist
DX: M79.2 Neuralgia and neuritis, unspecified (principal); M43.22 Fusion of spine, cervical region; Z91.030 Bee allergy status; Z88.1 Allergy status to other antibiotic agents; Z88.8 Allergy status to other drugs, medicaments and biological substances; Z88.0 Allergy status to penicillin; Z88.2 Allergy status to sulfonamides
CPT/HCPCS: 99211

== ENCOUNTER 2024-08-01 06:26 | Day surgery (SDC) | payer OTHER ==
[2024-07-30 11:24] VITALS: BMI 30.4
[2024-08-01 07:02] LABS: Glucose,Whole Blood 146 mg/dL (70-110)
[2024-08-01] MEDS: LACTATED RINGERS 1,000 ML IV SCH (07:03)
[2024-08-01] MEDS: IV FLUID CONTINUATION 1,000 ML IV ONE ×2 (07:05→07:07)
[2024-08-01 07:08] VITALS: TEMP 98
[2024-08-01] MEDS ORDERED: fentaNYL (PF) 50 MCG/ML 2 ML AMP ONE (07:14)
[2024-08-01] MEDS ORDERED: methylPREDNISolone ACETATE 40 MG/ML 1 ML VIAL ONE (07:14)
[2024-08-01] MEDS ORDERED: ROPIVACAINE 5MG/ML 20ML VIAL ONE (07:14)
[2024-08-01] MEDS ORDERED: IOPAMIDOL M200 10 ML VIAL ONE (07:14)
[2024-08-01] MEDS ORDERED: MIDAZOLAM 2 MG/2 ML VIAL ONE (07:14)
[2024-08-01] MEDS: IV FLUID CONTINUATION 800 ML IV ONE (07:36)
--- NOTE | 2024-08-01 07:48 | P.PCN ---
Description of Procedure: Procedure diagnosis. Coccygodynia. Groin pain. Perineal pain. Postprocedure diagnosis. As above. Procedure done. Ganglion impar block with local anesthetics and steroid under fluoroscopic guidance. Anesthesia. IV sedation with Versed 2milligram. Fentanyl 50microgram. Local anesthetic infiltration with 5 mL of 1% lidocaine. Continuous pulse ox, EKG, blood pressure and verbal communication was maintained with the patient. Time. Start 0714 . Stop 0728 . Blood loss. None. Indication. Discussed the procedure, alternatives and complications which may include infection, bleeding, nerve damage, rectal damage with the patient. Patient understands and all questions were answered. Procedure note. After getting consent, patient in OR in prone position. Back area was prepped with chlorhexidine thoroughly and draped in sterile fashion. After injecting 10 mL of 1% lidocaine subcutaneously, a curved 22-gauge 3-1/2 inch spinal needle was introduced under fluoroscopic guidance on the lateral side of sacrococcygeal joint and curved around the side to the anterior surface of the sacrococcygeal joint area. After needle position confirmation just anterior to the joint, after negative aspiration, 2 mL of Isovue-M radiocontrast material was injected. Contrast was noted in the presacrococcygeal joint area posterior to rectum. After repeat negative aspiration, 3 cc solution was injected which consists of 2 mL of 0.5% ropivacaine mixed with 1 mL of 40 mg Depo-Medrol. Needle was taken out. And Band-Aid was applied over the skin. Disposition. Patient tolerated the procedure well. No complication. Discharged home in stable condition.
[2024-08-01 07:53] VITALS: BP 131/85; PULSE 83; RESP 18
--- NOTE | 2024-08-01 08:01 | FL ---
EXAMINATION TYPE: FL guided pain mgmt statistic DATE OF EXAM: 08/01/2024 FLUOROSCOPY sympathetic nerve block, 16 sec fluoro, dap .[id number] mGym2 [facility], Workstation: [id number], 08/01/2024 7:59 AM
== END 2024-08-01 08:06 | disposition home or self-care (01) ==
LOC: ORPAIN 06:26
PROVIDERS: ATTEND Pain Medicine Interventional Pain Medicine
DX: M53.3 Sacrococcygeal disorders, not elsewhere classified (principal)
CPT/HCPCS: 64999; J2250; J3010; Q9966; J2795; J1010; 64520; 99152

== ENCOUNTER → 2024-08-15 | Outpatient (CLI) | payer OTHER ==
[2024-08-15 11:27] VITALS: BP 179/108; PULSE 83; RESP 16
--- NOTE | 2024-08-15 15:14 | P.PAINPG ---
PQRS Measure Charge Sheet Comment: HISTORY OF PRESENT ILLNESS: A 59 yr old male presents today w severe and chronic lower abd pain secondary to neuralgia for evaluation s/p Ganglion Impar Nerve Block #1. Pt states he experienced 50% pain relief x 2 wks s/p procedure. Pt states pain level is provoked at 8 /10 in intensity, constant, localized in the cervical spine, predominantly axial, sore in character w occasional shooting pain towards the groin. Pain is provoked by standing from a sitting position and PT x 2 wks in Sep 2023 which provoked pain. Pain is alleviated by physician guided home exercises 4 times weekly since Sep 2023, medications, manual massage, repositioning and rest . Interventional procedures include FRANCHESCA C6-C7 x1, C4-C7 ACDF (06/25), Ganglion Impar Nerve Block x1 Medications include Tyl, Celebrex REVIEW OF ORGAN SYSTEMS: CONSTITUTIONAL: No fevers or chills. No recent weight loss. NEUROLOGICAL: + numbness and tingling along the distal extremities. No seizure disorders or headaches. MUSCULOSKELETAL: + pain PSYCHIATRIC: Denies current depression or suicidal thoughts. Physical Examinations : Constitutional : Cooperative , not in acute distress . Neurologic : Cranial nerve II to XII intact. No focal neurological deficits. Psychiatric : alert & oriented x 3. Matching mood & appropriate affect. Judgment & insight intact. Musculoskeletal : Cervical Spine Motor strength in the deltoid and biceps: Normal right side. Normal Left side Motor strength biceps and the wrist extensors: Normal right side . Normal left side Motor strength in the triceps muscle: Normal right side. Normal left side Deep tendon reflexes: Normal at the biceps. Normal at Brachioradialis. Normal at triceps Vertebral body tenderness to deep palpation over Cervical facet loading test: positive bilaterally C4-C5, C5-C6 Spurling test: positive bilaterally Neck distraction test: positive bilaterally Saad sign: positive bilaterally Lumbar spine Abd BLQ TTP Motor strength lower extremities ,thigh and legs 5/5 Right side , 5/5 Left side Deep tendon reflexes : Normal Knee Jerk. Normal Ankle Jerk Vertebral body tenderness over C6 Marquez Test positive C6-C7 L > R Lumbar facet Loading Test: positive Right / positive Left Range of motion of the lumbar spine Flexion 30 degrees, extension 10 degrees Straight Leg Raise test: Left/ Right positive at degrees Jason test: positive right / positive left. Severe tenderness over the Sacroiliac joint on the Right / Left sides Gaenslen test: positive bilaterally Seated flexion test: positive bilaterally. Sacral spine : Severe tenderness over the Sacroiliac joint: right side / left side Range of motion: Flexion of the lumbar spine <60 degrees Range of motion: Extension of the lumbar spine <20 degrees Gaenslen's Test positive Jason test: positive right side / left side Thigh Thrust Test Sacral Thrust Test Imaging: MRI non contrast cervical spine from 12/06/23 reviewed Assessment/ Plan : Inguinal Neuralgia, C4-C7 ACDF Recommendation of Ganglion Impar Nerve Block #2. Risks, benefits of procedure discussed and patient verbalized understanding. Protocol for discontinuation/continuation of medication surrounding procedure discussed. Minimal anesthesia including Fentanyl and Versed if clinically indicated. All questions answered. I have spent greater than 30 minutes on patient care today. Dr Grover was available by phone for the evaluation of this patient. The time was used to review the medical records including relevant urine studies and Prescription history (MAPs), review of the available imaging, evaluation and examination of the patient, coordination of care with the medical staff and if applicable referring physicians, as well as creation of the medical record PQRS Narrative: Hx Alcohol Use (MH) No Home Medications: Ambulatory Orders Aspirin [[place] Aspirin EC] 81 mg PO DAILY 01/31/24 Atorvastatin Calcium 40 mg PO HS 01/31/24 Cholecalciferol [Vitamin D3 (25 Mcg = 1000 Iu)] 1 tab PO DAILY 01/31/24 Dicyclomine HCl 20 mg PO BID 01/31/24 Dulaglutide [Trulicity] 0.75 mg SQ Q7D 01/31/24 Dupilumab [Dupixent Pen] 300 mg SQ Q14D 01/31/24 Famotidine 40 mg PO HS 01/31/24 Insulin Glargine,Hum.rec.anlog [Lantus Solostar Pen] 50 units SQ QAM 01/31/24 Insulin Lispro [humaLOG Kwikpen] 10 units SQ BID 01/31/24 Magnesium 1 tab PO HS 01/31/24 Metoprolol Succinate (ER) [Toprol XL] 100 mg PO HS 01/31/24 Pantoprazole [Protonix] 1 tab PO HS 01/31/24 Sildenafil Citrate 50 mg PO DAILY PRN 01/31/24 Albuterol Inhaler [Ventolin Hfa Inhaler] 90 mcg IH DAILY PRN 03/08/24 Cetirizine HCl 10 mg PO DAILY 03/08/24 EPINEPHrine (Auto Inject) [Epipen] 0.3 mg IM ONCE PRN 03/08/24 Ezetimibe [Zetia] 10 mg PO DAILY 03/08/24 Orphenadrine Citrate [Orphenadrine Citrate ER] 100 mg PO BID 03/08/24 Pioglitazone [Actos] 15 mg PO DAILY 03/08/24 Pregabalin 50 mg PO BID 03/08/24 Tamsulosin [Flomax] 0.4 mg PO HS 03/08/24 HYDROcodone/APAP 7.5-325MG [[place] 7.5] 1 each PO Q4HR PRN #42 tab 06/12/24 Naproxen 500 mg PO BID #28 tab 06/12/24 Sennosides/Docusate Sodium [[place]enna Plus 8.6-50 mg Tablet] 2 each PO DAILY PRN #30 tab 06/12/24 metroNIDAZOLE [Flagyl] 500 mg PO TID #15 tab 06/12/24 Budesonide/Formoterol Fumarate [Symbicort 160-4.5 Mcg Inhaler] 2 puff INHALATION DAILY 07/30/24 Controlled Substance Measures - Controlled Substance Measures Is patient prescribed a controlled substance at discharge?: No
== END ==
LOC: PNWHC3 08:32
PROVIDERS: ATTEND Anesthesiology
DX: M79.2 Neuralgia and neuritis, unspecified (principal); Z91.030 Bee allergy status; Z88.6 Allergy status to analgesic agent; Z88.2 Allergy status to sulfonamides; Z88.0 Allergy status to penicillin; Z88.1 Allergy status to other antibiotic agents
CPT/HCPCS: 99211

== ENCOUNTER → 2024-08-15 | Outpatient (CLI) | payer OTHER ==
--- NOTE | 2024-08-15 10:08 | CT ---
EXAMINATION TYPE: CT cervical spine wo con CT DLP: 464.1 mGycm, Automated exposure control for dose reduction was used. DATE OF EXAM: 08/15/2024 9:59 AM COMPARISON: CT cervical spine 06/11/2024. CLINICAL INDICATION:Male, 59 years old with history of M54.2 PAIN IN NECK; PHH, HEADACHE, DIZZINESS A ND HX OF FUSION., pain TECHNIQUE: Axial CT images from the skull base to the inferior aspect of T2 we obtained without intra venous contrast. Coronal and sagittal reformatted images were also reviewed. FINDINGS: Fracture: None. Osseous structures: Postsurgical changes from ACDF C4-C7 redemonstrated. Hardware appears intact. Thi s creates streak artifact which limits evaluation. Vertebral alignment: Reversal of the normal cervical lordosis at C4-C7. Spinal canal/Neural Foramina: No evidence of significant spinal canal narrowing. Uncovertebral joint hypertrophy with a mild right neural foraminal stenosis at C5-C6. No other significant neural foramin al stenosis identified. Neck soft tissues: Prevertebral soft tissues are within normal limits. Other: The airway is patent. The lung apices are clear. Bilateral palatine tonsillar hypertrophy. IMPRESSION: 1. No evidence of cervical spine fracture. 2. Postsurgical changes from C4-C7 ACDF. [facility], , 08/15/2024 10:06 AM
== END | disposition home or self-care (01) ==
LOC: RADCTMAIN 09:37
PROVIDERS: ATTEND Orthopaedic Surgery
DX: M54.2 Cervicalgia (principal); Z98.890 Other specified postprocedural states
CPT/HCPCS: 72125

== ENCOUNTER 2024-08-29 11:24 | Day surgery (SDC) | payer OTHER ==
[2024-08-27 13:35] VITALS: BMI 31.9
[2024-08-29 11:57] LABS: Glucose,Whole Blood 127 mg/dL (70-110)
[2024-08-29] MEDS: LACTATED RINGERS 1,000 ML IV SCH (11:57)
[2024-08-29] MEDS: IV FLUID CONTINUATION 1,000 ML IV ONE (11:57)
[2024-08-29 11:58] VITALS: TEMP 98.1
[2024-08-29] MEDS ORDERED: fentaNYL (PF) 50 MCG/ML 2 ML AMP ONE (12:54)
[2024-08-29] MEDS ORDERED: ROPIVACAINE 5MG/ML 20ML VIAL ONE (12:54)
[2024-08-29] MEDS ORDERED: IOPAMIDOL M200 10 ML VIAL ONE (12:54)
[2024-08-29] MEDS ORDERED: methylPREDNISolone ACETATE 40 MG/ML 1 ML VIAL ONE (12:54)
[2024-08-29] MEDS ORDERED: MIDAZOLAM 2 MG/2 ML VIAL ONE (12:54)
[2024-08-29] MEDS: IV FLUID CONTINUATION 800 ML IV ONE (13:40)
[2024-08-29 13:41] VITALS: RESP 14
--- NOTE | 2024-08-29 13:44 | P.PCN ---
Description of Procedure: Procedure diagnosis. Coccygodynia. Groin pain. Perineal pain. Postprocedure diagnosis. As above. Procedure done. Ganglion impar block with local anesthetics and steroid under fluoroscopic guidance. Anesthesia. IV sedation with Versed 2milligram. Fentanyl 50 microgram. Local anesthetic infiltration with 5 mL of 1% lidocaine. Continuous pulse ox, EKG, blood pressure and verbal communication was maintained with the patient. Time. Start 1257 . Stop 1328 . Blood loss. None. Indication. Discussed the procedure, alternatives and complications which may include infection, bleeding, nerve damage, rectal damage with the patient. Patient understands and all questions were answered. Patient's pain is in ilioinguinal iliohypogastric and genitofemoral nerve area bilaterally. Which is secondary to hernia surgery. Also patient has got some redness in the hypogastric area near the surgical site. Patient is going to see his surgeon in about 4 days. I told him to mention about this redness to rule out any infection process. I do not think further repeat injection of ganglion impar is indicated. Ilioinguinal, iliohypogastric and genitofemoral nerve bilaterally may give only short-term improvement .No clinical study has shown long-lasting improvement with these blocks. Procedure note. After getting consent, patient in OR in prone position. Back area was prepped with chlorhexidine thoroughly and draped in sterile fashion. After injecting 10 mL of 1% lidocaine subcutaneously, a curved 20-gauge 3-1/2 inch Touhy needle was introduced under fluoroscopic guidance on the lateral side of sacrococcygeal joint and curved around the side to the anterior surface of the sacrococcygeal joint area. After needle position confirmation just anterior to the joint, after negative aspiration, 2 mL of Isovue-M radiocontrast material was injected. Contrast was noted in the presacrococcygeal joint area posterior to rectum. After repeat negative aspiration, 3 cc solution was injected which consists of 2 mL of 0.5% ropivacaine mixed with 1 mL of 40 mg Depo-Medrol. Initial attempt with 22-gauge spinal needle, contrast injection did not show correct needle positioning, so I did the second attempt with 20-gauge Touhy needle which was easy to maneuver. Needle was taken out. And Band-Aid was applied over the skin. Disposition. Patient tolerated the procedure well. No complication. Discharged home in stable condition.
--- NOTE | 2024-08-29 13:45 | FL ---
Fluoroscopy History: SYMPATHETIC NERVE BLOCK SYMPATHETIC NERVE BLOCK FL TIME 1 MIN 6 SEC DAP [id number] [facility], , 08/29/2024 1:42 PM
[2024-08-29 13:46] LABS: Glucose,Whole Blood 131 mg/dL (70-110)
[2024-08-29 13:57] VITALS: BP 147/86; PULSE 90
== END 2024-08-29 14:22 | disposition home or self-care (01) ==
LOC: ORPAIN 11:24
PROVIDERS: ATTEND Pain Medicine Interventional Pain Medicine
DX: M53.3 Sacrococcygeal disorders, not elsewhere classified (principal); R10.32 Left lower quadrant pain; R10.31 Right lower quadrant pain; R10.2 Pelvic and perineal pain
CPT/HCPCS: 64999; J2250; J3010; Q9966; J2795; J1010; 64520; 99152

== ENCOUNTER → 2024-09-18 | Outpatient (CLI) | payer OTHER ==
[2024-09-18 09:05] VITALS: BP 146/90; PULSE 96; RESP 16; TEMP 97.1
--- NOTE | 2024-09-18 16:00 | P.PAINPG ---
PQRS Measure Charge Sheet Comment: HISTORY OF PRESENT ILLNESS: A 59 yr old male presents today w severe and chronic lower abd pain secondary to neuralgia for evaluation s/p Ganglion Impar Nerve Block #2. Pt states he experienced 50% pain relief x 2 wks s/p procedure. Pt states pain level is provoked at 7 /10 in intensity, constant, localized in the cervical spine, predominantly axial, sore in character w occasional shooting pain towards the groin. Pain is provoked by standing from a sitting position and PT x 2 wks in Sep 2023 which provoked pain. Pain is alleviated by physician guided home exercises 4 times weekly since Sep 2023, medications, manual massage, repositioning and rest . Interventional procedures include FRANCHESCA C6-C7 x1, C4-C7 ACDF (06/25), Ganglion Impar Nerve Block x2 Medications include Tyl, Celebrex REVIEW OF ORGAN SYSTEMS: CONSTITUTIONAL: No fevers or chills. No recent weight loss. NEUROLOGICAL: + numbness and tingling along the distal extremities. No seizure disorders or headaches. MUSCULOSKELETAL: + pain PSYCHIATRIC: Denies current depression or suicidal thoughts. Physical Examinations : Constitutional : Cooperative , not in acute distress . Neurologic : Cranial nerve II to XII intact. No focal neurological deficits. Psychiatric : alert & oriented x 3. Matching mood & appropriate affect. Judgment & insight intact. Musculoskeletal : Cervical Spine Motor strength in the deltoid and biceps: Normal right side. Normal Left side Motor strength biceps and the wrist extensors: Normal right side . Normal left side Motor strength in the triceps muscle: Normal right side. Normal left side Deep tendon reflexes: Normal at the biceps. Normal at Brachioradialis. Normal at triceps Vertebral body tenderness to deep palpation over Cervical facet loading test: positive bilaterally C4-C5, C5-C6 Spurling test: positive bilaterally Neck distraction test: positive bilaterally Saad sign: positive bilaterally Lumbar spine Abd BLQ TTP Motor strength lower extremities ,thigh and legs 5/5 Right side , 5/5 Left side Deep tendon reflexes : Normal Knee Jerk. Normal Ankle Jerk Vertebral body tenderness over C6 Marquez Test positive C6-C7 L > R Lumbar facet Loading Test: positive Right / positive Left Range of motion of the lumbar spine Flexion 30 degrees, extension 10 degrees Straight Leg Raise test: Left/ Right positive at degrees Jason test: positive right / positive left. Severe tenderness over the Sacroiliac joint on the Right / Left sides Gaenslen test: positive bilaterally Seated flexion test: positive bilaterally. Sacral spine : Severe tenderness over the Sacroiliac joint: right side / left side Range of motion: Flexion of the lumbar spine <60 degrees Range of motion: Extension of the lumbar spine <20 degrees Gaenslen's Test positive Jason test: positive right side / left side Thigh Thrust Test Sacral Thrust Test Imaging: MRI non contrast cervical spine from 12/06/23 reviewed Assessment/ Plan : Inguinal Neuralgia, C4-C7 ACDF Recommendation of Inguinal nerve block #1 (pt will defer till after surgery) and medication management. Lyrica 100mg #60 w 1 RF (pt previously on Lyrica TID in 2023). Opiate/ narcotic agreement signed 09/18/24. Use, side effects, adverse reactions and safe storage discussed. All questions answered. I have spent greater than 30 minutes on patient care today. Dr Grover was av ailable by phone for the evaluation of this patient. The time was used to review the medical records including relevant urine studies and Prescription history (MAPs), review of the available imaging, evaluation and examination of the patient, coordination of care with the medical staff and if applicable referring physicians, as well as creation of the medical record - Pain Location Bilateral Lower Groin Non-Pharmacological Interventions: Heat, Ice, Inactivity, Physical Therapy, Position/Reposition, Sitting Pharmacological Interventions: Block, PRN Medication, Topical Medication PQRS Narrative: Hx Alcohol Use (MH) No Home Medications: Ambulatory Orders Aspirin [[place] Aspirin EC] 81 mg PO DAILY 01/31/24 Atorvastatin Calcium 40 mg PO HS 01/31/24 Cholecalciferol [Vitamin D3 (25 Mcg = 1000 Iu)] 1 tab PO DAILY 01/31/24 Dicyclomine HCl 20 mg PO BID 01/31/24 Dulaglutide [Trulicity] 0.75 mg SQ Q7D 01/31/24 Dupilumab [Dupixent Pen] 300 mg SQ Q14D 01/31/24 Famotidine 40 mg PO HS 01/31/24 Insulin Glargine,Hum.rec.anlog [Lantus Solostar Pen] 50 units SQ QAM 01/31/24 Insulin Lispro [humaLOG Kwikpen] 10 units SQ BID 01/31/24 Magnesium 1 tab PO HS PRN 01/31/24 Metoprolol Succinate (ER) [Toprol XL] 100 mg PO HS 01/31/24 Pantoprazole [Protonix] 1 tab PO HS 01/31/24 Albuterol Inhaler [Ventolin Hfa Inhaler] 90 mcg IH DAILY PRN 03/08/24 Cetirizine HCl 10 mg PO DAILY 03/08/24 EPINEPHrine (Auto Inject) [Epipen] 0.3 mg IM ONCE PRN 03/08/24 Ezetimibe [Zetia] 10 mg PO DAILY 03/08/24 Pioglitazone [Actos] 15 mg PO DAILY 03/08/24 Tamsulosin [Flomax] 0.4 mg PO HS 03/08/24 Losartan [Cozaar] 100 mg PO DAILY 08/27/24 Pregabalin [Lyrica] 100 mg PO BID 30 Days #60 cap 09/18/24 Controlled Substance Measures - Controlled Substance Measures Is patient prescribed a controlled substance at discharge?: Yes When asked, does pt state using other controlled substances?: No If prescribed controlled substance>3 days was MAPS reviewed?: Yes If Rx opioid, was Start Talking consent form obtained?: Yes Was information provided regarding opioid addiction?: Yes
== END ==
LOC: PNWHC3 08:09
PROVIDERS: ATTEND Specialist
DX: M79.2 Neuralgia and neuritis, unspecified (principal); M43.22 Fusion of spine, cervical region; Z91.030 Bee allergy status; Z88.8 Allergy status to other drugs, medicaments and biological substances; Z88.2 Allergy status to sulfonamides; Z88.0 Allergy status to penicillin; Z88.1 Allergy status to other antibiotic agents
CPT/HCPCS: 99211

== ENCOUNTER → 2024-11-18 | Outpatient (CLI) | payer OTHER | END | disposition home or self-care (01) | LOC: LABPAT 09:25 | PROVIDERS: ATTEND Orthopaedic Surgery | DX: Z01.812 Encounter for preprocedural laboratory examination (principal); Z22.322 Carrier or suspected carrier of Methicillin resistant Staphylococcus aureus; M48.02 Spinal stenosis, cervical region | CPT/HCPCS: 86850; 86900; 86901; 87070 ==

== ENCOUNTER → 2024-11-20 | Outpatient (CLI) | payer OTHER ==
[2024-11-20 08:50] VITALS: BP 148/93; PULSE 81; RESP 16; TEMP 97.9
--- NOTE | 2024-11-20 15:55 | P.PAINPG ---
PQRS Measure Charge Sheet Comment: HISTORY OF PRESENT ILLNESS: A 59 yr old male presents today w severe and chronic lower abd pain secondary to neuralgia for evaluation s/p Ganglion Impar Nerve Block #2. Pt states he experienced 50% pain relief x 2 wks s/p procedure. Pt states pain level is provoked at 7 /10 in intensity, constant, localized in the R groin, predominantly axial, sore in character w occasional shooting pain towards the pubic area. Pain is provoked by standing from a sitting position and PT x 2 wks in Sep 2023 which provoked pain. Pain is alleviated by physician guided home exercises 4 times weekly since Sep 2023, medications, manual massage, repositioning and rest . Interventional procedures include FRANCHESCA C6-C7 x1, C4-C7 ACDF (06/25), Ganglion Impar Nerve Block x2 Medications include Lyrica 100mg #60, Tyl, Celebrex REVIEW OF ORGAN SYSTEMS: CONSTITUTIONAL: No fevers or chills. No recent weight loss. NEUROLOGICAL: + numbness and tingling along the distal extremities. No seizure disorders or headaches. MUSCULOSKELETAL: + pain PSYCHIATRIC: Denies current depression or suicidal thoughts. Physical Examinations : Constitutional : Cooperative , not in acute distress . Neurologic : Cranial nerve II to XII intact. No focal neurological deficits. Psychiatric : alert & oriented x 3. Matching mood & appropriate affect. Judgment & insight intact. Musculoskeletal : Cervical Spine Motor strength in the deltoid and biceps: Normal right side. Normal Left side Motor strength biceps and the wrist extensors: Normal right side . Normal left side Motor strength in the triceps muscle: Normal right side. Normal left side Deep tendon reflexes: Normal at the biceps. Normal at Brachioradialis. Normal at triceps Vertebral body tenderness to deep palpation over Cervical facet loading test: positive bilaterally C4-C5, C5-C6 Spurling test: positive bilaterally Neck distraction test: positive bilaterally Saad sign: positive bilaterally Lumbar spine Abd RLQ TTP Motor strength lower extremities ,thigh and legs 5/5 Right side , 5/5 Left side Deep tendon reflexes : Normal Knee Jerk. Normal Ankle Jerk Vertebral body tenderness over C6 Marquez Test positive C6-C7 L > R Lumbar facet Loading Test: positive Right / positive Left Range of motion of the lumbar spine Flexion 30 degrees, extension 10 degrees Straight Leg Raise test: Left/ Right positive at degrees Jason test: positive right / positive left. Severe tenderness over the Sacroiliac joint on the Right / Left sides Gaenslen test: positive bilaterally Seated flexion test: positive bilaterally. Sacral spine : Severe tenderness over the Sacroiliac joint: right side / left side Range of motion: Flexion of the lumbar spine <60 degrees Range of motion: Extension of the lumbar spine <20 degrees Gaenslen's Test positive Jason test: positive right side / left side Thigh Thrust Test Sacral Thrust Test Imaging: MRI non contrast cervical spine from 12/06/23 reviewed Assessment/ Plan : Inguinal Neuralgia, C4-C7 ACDF Recommendation of R Genitofemoral nerve block #1 (pt will defer till after surgery) and medication management. Lyrica 100mg #60 w 2 RF. Opiate/ narcotic agreement signed 09/18/24. Use, side effects, adverse reactions and safe storage discussed. All questions answered. I have spent greater than 30 minutes on patient care today. Dr Grover was available by phone for the evaluation of this patient. The time was used to review the medical records including relevant urine studies and Prescription history (MAPs), review of the available imaging, evaluation and examination of the patient, coordination of care with the medical staff and if applicable referring physicians, as well as creation of the medical record - Pain Location Bilateral Groin Non-Pharmacological Interventions: Heat, Ice, Inactivity, Position/Reposition Pharmacological Interventions: Block, PRN Medication, Scheduled Medication, Topical Medication PQRS Narrative: Hx Alcohol Use (MH) No Home Medications: Ambulatory Orders Aspirin [[place] Aspirin EC] 81 mg PO DAILY 01/31/24 Atorvastatin Calcium 40 mg PO HS 01/31/24 Cholecalciferol [Vitamin D3 (25 Mcg = 1000 Iu)] 1 tab PO DAILY 01/31/24 Dicyclomine HCl 20 mg PO BID 01/31/24 Dulaglutide [Trulicity] 0.75 mg SQ Q7D 01/31/24 Dupilumab [Dupixent Pen] 300 mg SQ Q14D 01/31/24 Famotidine 40 mg PO HS 01/31/24 Insulin Glargine,Hum.rec.anlog [Lantus Solostar Pen] 50 units SQ QAM 01/31/24 Insulin Lispro [humaLOG Kwikpen] 10 units SQ BID 01/31/24 Magnesium 1 tab PO HS PRN 01/31/24 Metoprolol Succinate (ER) [Toprol XL] 100 mg PO HS 01/31/24 Pantoprazole [Protonix] 1 tab PO HS 01/31/24 Albuterol Inhaler [Ventolin Hfa Inhaler] 90 mcg IH DAILY PRN 03/08/24 Cetirizine HCl 10 mg PO DAILY 03/08/24 EPINEPHrine (Auto Inject) [Epipen] 0.3 mg IM ONCE PRN 03/08/24 Ezetimibe [Zetia] 10 mg PO DAILY 03/08/24 Pioglitazone [Actos] 15 mg PO DAILY 03/08/24 Tamsulosin [Flomax] 0.4 mg PO HS 03/08/24 Losartan [Cozaar] 100 mg PO DAILY 08/27/24 Pregabalin [Lyrica] 100 mg PO BID 30 Days #60 cap 09/18/24 Controlled Substance Measures - Controlled Substance Measures Is patient prescribed a controlled substance at discharge?: Yes When asked, does pt state using other controlled substances?: Yes If prescribed controlled substance>3 days was MAPS reviewed?: Yes
== END ==
LOC: PNWHC3 08:15
PROVIDERS: ATTEND Specialist
DX: M79.2 Neuralgia and neuritis, unspecified (principal); Z98.890 Other specified postprocedural states; Z88.1 Allergy status to other antibiotic agents; Z91.030 Bee allergy status; Z88.0 Allergy status to penicillin; Z88.2 Allergy status to sulfonamides; Z88.8 Allergy status to other drugs, medicaments and biological substances
CPT/HCPCS: 99211

== ENCOUNTER 2024-11-25 07:30 | Inpatient (IN) | payer OTHER ==
--- NOTE | 2024-11-24 20:14 | P.HPOR ---
History of Present Illness H&P Date: 11/18/24 .D:Date: 11/18/24 : 10:36am .T:Title: Spine Surgery Preoperative Assessment and Risk Review Mr. Brown is presenting for evaluation of neck pain with upper extremity weakness difficulty with ambulation. It was my pleasure to have seen and examined Mr. Brown. In our visit today we have had a chance to go over subjective complaints, physical examination findings and treatments including the natural course history without intervention and various interventional options. The patients imaging demonstrates: C6-7 hardware failure as well as kyphosis and progression with stenosis cervical spine. On physical exam, Mr. Brown demonstrates: Upper extremity weakness difficulty with walking around difficulty with ambulation and ADLs along with neck pain. I have explained to the patient that as their condition progresses it will cause further neurological deficits and eventual paralysis. Based on the patients imaging, physical exam, and the rapid progression and disabling nature of their symptoms, at this time I recommend surgery in the form of a: C3-T2 decompression fusion . I discussed the risk and benefits of this procedure at length with Mr. Brown. The patient agreed to considered pursuing the procedure abovementioned. Prior to surgery, she should follow up with her PCP (Cardio, ID, IM etc) for clearance. Questions were invited and answered, and the patient wishes to proceed as outlined below. Currently, I am recommendin. C3-T2 decompression fusion 2.Review of surgical risks and benefits as well as an educational packet on the proposed surgical procedure. 3. Follow pre-sugical checklist and recommendations Risks: All surgical procedures come with inherent risks, including those related to positioning, anesthesia, intraoperative findings, and postoperative comp lications. It is important to understand that surgery does not come with any guarantee of a successful outcome as complications and adverse events are always possible. The patient was given a handout in office today discussing the surgical procedure and risks associated with the intervention, both of which were discussed with the patient. These risks include but are not limited to the following: * Experiencing same, different or even worse symptoms in back, neck, arms, or legs compared to before surgery. Requiring further surgery or other forms of treatment presently or at some time in the future at same or other levels of the intended spine surgery. On an extreme but fortunately relatively rare basis severe complication such as blindness, stroke, heart attack, temporary and/or permanent nerve injury, paralysis, coma, or may occur, sometimes without known explanation. Surgical complications may include but are not limited to risk of infection, fluid accumulation in the surgical dissection site, including a seroma or hematoma, that requires additional surgery, wound drainage, bleeding, new numbness or weakness, vision changes/loss, spinal fluid leakage, non-healing and/or infected incision, headaches, difficulty or inability to swallow, hoarseness, hemopneumothorax, pneumothorax, impotence, retrograde ejaculation, vaginal dryness; injury to nerves, spinal cord, blood vessels, lymphatics or other vital organs (i.e., bowel injury, injury to the great vessels); heterotopic bone formation; complications related to the hardware such as screws, rods, cages including misplaced hardware, device failure, instrumentation at the wrong spine level, hardware fracture/breakage, or hardware loosening; vertebral failure of the spinal column above or below the newly placed hardware; retained surgical instrumentations or devices and the need for further surgery. * Medical risks of the planned spine surgery include but are not limited to generalized Infections to the whole body or local areas outside of the surgical site (sepsis), heart attack, bleeding, anaphylaxis, meningitis, seizure, epilepsy, hearing loss, burn luis, laceration of the head or other areas of the body, bruising, hypersensitivity of the skin, bladder over distension; allergic reaction; shoulder injury related to positioning; fat, blood and air clots to other areas of the body like heart, lungs, brain; failure of internal organs such as lungs, kidneys, liver and excessive bleeding. If blood transfusions are necessary, note that transfusions may cause intolerance reactions such as anaphylaxis or other complex reactions. Despite best efforts, the results of spine surgery might not heal in terms of bone, soft tissues such as skin, fascia, ligaments, and joints. Additionally, in order to achieve best possible results, spine surgery may be carried out beyond the initially planned levels and involve decompression, fusion including insertion of hardware at levels other than the original intended area of surgical interest change some portions of the procedure in order to ensure the best possible outcomes. With spine surgery and spinal fusion, there are different off label uses of instrumentation (devices, implants and hardware) as well as biological substances (bone morphogenic proteins, demineralized bone matrix) as well as using extra bone from allograft sources (i.e. cadaver bone) or autograft (iliac crest bone, ribs, or the spine itself). The patient has been given information about these practices and their inherent risks and benefits. [facility] is an educational center that serves as a training facility for neurosurgical and orthopedic VOCATIONAL NURSE LV[employer] and Nursing students. Physician assistants are medically trained surgical providers who function in the outpatient, inpatient, and operating room setting under the direct supervision of the attending surgeon. [facility] has multiple operating rooms with single and overlapping r ooms running daily. They currently function under the required guidelines as produced by the [facility] Finance Committee with regards to the overlapping rooms and will continue to comply with changes to this policy as they occur. The requirements include and are complied with as follows: (1) the critical portions of the overlapping rooms will not occur at the same time, (2) the attending physician will be physically present during the critical portions of the procedure and immediately available during the entire case, and (3) a back-up attending is designated should the primary attending not be immediately available. The patient has had a chance to review all the listed information, has been given print outs detailing this information, and has had all his/her questions answered to their satisfaction. It was my pleasure to have seen and examined Mr. Brown. In our visit today we have had a chance to go over my understanding of our patient's current condition, the natural course history without intervention and various interventional options. Questions were invited and answered, and the patient wishes to proceed as outlined above. I have seen and examined the patient for 25 minutes and we have spent more than 50% of the time in repeat and detailed counseling about the patient's condition, its natural course history with out and as much as can be predicted with surgery and re-review of various surgical treatment options. In conclusion, Mr. Brown and requested we proceed with the above suggested surgery and are willing to accept risks and limitations of the suggested surgery as nature of the disease process and our best attempts at treatment for the condition. Thank you again for allowing us to be part of your patient's care. Please don't hesitate to contact me if you have any further questions. Postoperative plan: Admit to inpatient 4 South without telemetry Pain control as needed DVT prophylaxis Postoperative CT scan cervical spine Physical therapy Daily Hard cervical collar # SIGNED BY Ramirez Dong (JESSICAO)11/18/2024 11:24AM Past Medical History Past Medical History: COPD, Diabetes Mellitus, GERD/Reflux, Hyperlipidemia, Hypertension Additional Past Medical History / Comment(s): pinched nerve L3-4, DDD, Type II DM, PPM, hx. bilat. leg cellulitis - none currently, hx. - infected scrotum - resolved, bleeding ulcer History of Any Multi-Drug Resistant Organisms: None Reported Past Surgical History: Appendectomy, Breast Surgery, Cholecystectomy, Hernia Repair, Pacemaker Additional Past Surgical History / Comment(s): ventral hernia repair 2022, Lt. 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 Past Anesthesia/Blood Transfusion Reactions: No Reported Reaction Additional Past Anesthesia/Blood Transfusion Reaction / Comment(s): no reaction to blood transfusion Type of Cardiac Device: Permanent Pacemaker Device Placement Date:: 2021 Smoking Status: Former smoker - Past Family History Father Family Medical History: No Reported History Mother Family Medical History: No Reported History Medications and Allergies Home Medications Medication Instructions Recorded Confirmed Type Aspirin [[place] Aspirin EC] 81 mg PO DAILY 01/31/24 11/20/24 History Cholecalciferol [Vitamin D3 (25 1 tab PO DAILY 01/31/24 11/20/24 History Mcg = 1000 Iu)] Dicyclomine HCl 20 mg PO BID 01/31/24 11/20/24 History Dulaglutide [Trulicity] 0.75 mg SQ Q7D 01/31/24 11/20/24 History Dupilumab [Dupixent Pen] 300 mg SQ Q14D 01/31/24 11/20/24 History Insulin Glargine,Hum.rec.anlog 40 units SQ QAM 01/31/24 11/20/24 History [Lantus Solostar Pen] Insulin Lispro [humaLOG Kwikpen] 10 units SQ BID 01/31/24 11/20/24 History Magnesium 1 tab PO HS PRN 01/31/24 11/20/24 History Metoprolol Succinate (ER) [Toprol 100 mg PO HS 01/31/24 11/20/24 History XL] Pantoprazole [Protonix] 1 tab PO HS 01/31/24 11/20/24 History Albuterol Inhaler [Ventolin Hfa 90 mcg IH DAILY PRN 03/08/24 11/20/24 History Inhaler] Cetirizine HCl 10 mg PO DAILY 03/08/24 11/20/24 History EPINEPHrine (Auto Inject) [Epipen] 0.3 mg IM ONCE PRN 03/08/24 11/20/24 History Ezetimibe [Zetia] 10 mg PO DAILY 03/08/24 11/20/24 History Pioglitazone [Actos] 15 mg PO DAILY 03/08/24 11/20/24 History Losartan [Cozaar] 100 mg PO DAILY 08/27/24 11/20/24 History Empagliflozin [Jardiance] 25 mg PO DAILY 11/20/24 11/20/24 History Pregabalin [Lyrica] 100 mg PO BID 30 Days #60 cap 11/20/24 11/20/24 Rx Allergies Allergy/AdvReac Type Severity Reaction Status Date / Time bee pollen Allergy Anaphylaxis Verified 11/20/24 08:53 cephalexin [From Keflex] Allergy Rash/Hives Verified 11/20/24 08:53 lisinopril Allergy Anaphylaxis Verified 11/20/24 08:53 Penicillins Allergy Anaphylaxis Verified 11/20/24 08:53 Sulfa (Sulfonamide Allergy Rash/Hives Verified 11/20/24 08:53 Antibiotics) sulfamethoxazole Allergy Rash/Hives Verified 11/20/24 08:53 [From Bactrim] trimethoprim [From Bactrim] Allergy Rash/Hives Verified 11/20/24 08:53 Physical Examination Osteopathic Statement: *. No significant issues noted on an osteopathic structural exam other than those noted in the History and Physical/Consult.
[~2024-11-25 07:30] MED LIST: ONDANSETRON 4 MG/2 ML VIAL IVP PRN; TRANEXAMIC 1,000 MG/100ML-NACL 1,000 MG in SALINE 1 100ML.BAG IVPB PRN
[2024-11-25 08:43] LABS: Glucose,Whole Blood 93 mg/dL (70-110)
[2024-11-25] MEDS: LACTATED RINGERS 1,000 ML IV SCH (08:49)
[2024-11-25] MEDS: ACETAMINOPHEN TAB 500 MG TAB PO PRN (08:54)
[2024-11-25] MEDS: ONDANSETRON 4 MG/2 ML VIAL IVP ONE (08:55)
[2024-11-25] MEDS: GABAPENTIN 300 MG CAP PO PRN (08:55)
[2024-11-25] MEDS: DEXAMETHASONE SOD PHOSPHATE 4 MG/ML 1 ML VIAL IV ONE (08:56)
[2024-11-25] MEDS: IV FLUID CONTINUATION 1,000 ML IV ONE ×2 (09:30)
[2024-11-25] MEDS: MIDAZOLAM 2 MG/2 ML VIAL IV ONE (09:42)
[2024-11-25] MEDS ORDERED: PROPOFOL 10 MG/ML 20 ML VIAL IV ONE (09:52)
[2024-11-25] MEDS ORDERED: SUCCINYLCHOLINE CHLORIDE 200 MG/10 ML VIAL IV ONE (09:52)
[2024-11-25] MEDS ORDERED: KETAMINE HCL IN 0.9 % NACL 50 MG/5 ML SYRINGE ONE (09:52)
[2024-11-25] MEDS ORDERED: GLYCOPYRROLATE 0.2 MG/ML 2 ML VIAL ONE (09:52)
[2024-11-25] MEDS ORDERED: ROCURONIUM 10 MG/ML (5 ML VIAL) IV ONE (09:52)
[2024-11-25] MEDS ORDERED: LIDOCAINE 1% INJ 10MG/ML (20 ML MDV) ONE (09:52)
[2024-11-25] MEDS ORDERED: PHENYLEPHRINE 10 MG/ML VIAL ONE (09:52)
[2024-11-25] MEDS ORDERED: fentaNYL (PF) 50 MCG/ML 2 ML AMP ONE (09:52)
[2024-11-25] MEDS ORDERED: TRANEXAMIC 1,000 MG/100ML-NACL PREMIX BAG ONE (09:52)
[2024-11-25] MEDS ORDERED: HYDROmorphone (PF) 1 MG/ML ONE (09:52)
[2024-11-25] MEDS ORDERED: NEOSTIGMINE 1 MG/ML 10 ML VIAL ONE (09:52)
[2024-11-25] MEDS: THROMBIN (BOVINE) 5,000 UNIT VIAL TOPICAL ONE (10:44)
[2024-11-25] MEDS: ceFAZolin 3,000 MG in SODIUM CHLORIDE 0.9% IRRIGATIO 3,000 ML IRRIGATION ONE (10:45)
[2024-11-25] MEDS: VANCOMYCIN 1,000 MG VIAL MISCELLANE ONE (11:46)
[2024-11-25] MEDS: GENTAMICIN 80 MG in SODIUM CHLORIDE 0.9% IRRIGATIO 3,000 ML IRRIGATION ONE (11:47)
--- NOTE | 2024-11-25 12:14 | P.OP ---
Date of Procedure: 11/25/24 Preoperative Diagnosis: 1. S/P C4-7 ACDF WITH KYPHOTIC COLLAPSE 2. C3-7 CERVICAL STENOSIS WITH RADICULOPATY 3. BUE WEAKNESS 4. CERVICAL MYELOPATHY Postoperative Diagnosis: 1. S/P C4-7 ACDF WITH KYPHOTIC COLLAPSE 2. C3-7 CERVICAL STENOSIS WITH RADICULOPATY 3. BUE WEAKNESS 4. CERVICAL MYELOPATHY Procedure(s) Performed: 1. C2-T2 POSTEROLATERAL INSTRUMENTED FUSION 2. C2-T1 BILATERAL LAMINECTOMY, FACETECTOMY AND FORAMINOTOMY 3. C2-T2 SEGMENTAL INSTRUMENTATION USE OF IONM Implants: CINDY SASKATCHEWAN POSTERIOR CERVICAL FUSION SYSTEM DBM, AUTOGRAFT Anesthesia: GETA Surgeon: Ramirez Dong Cash Poster #1: Андрей Abraham (WAS PRESENT AND ASSISTED WITH ALL ASPECTS OF THE CASE FROM POSITION TO DRESSING PLACEMENT) Estimated Blood Loss (ml): 150 IV fluids (ml): 1,200 Urine output (ml): 300 Pathology: none sent Condition: stable Disposition: PACU Indications for Procedure: Mr. Brown is presenting for evaluation of neck pain with upper extremity weak ness difficulty with ambulation. It was my pleasure to have seen and examined Mr. Brown. In our visit today we have had a chance to go over subjective complaints, physical examination findings and treatments including the natural course history without intervention and various interventional options. The patients imaging demonstrates: C6-7 hardware failure as well as kyphosis and progression with stenosis cervical spine. On physical exam, Mr. Brown demonstrates: Upper extremity weakness difficulty with walking around difficulty with ambulation and ADLs along with neck pain. I have explained to the patient that as their condition progresses it will cause further neurological deficits and eventual paralysis. Based on the patients imaging, physical exam, and the rapid progression and disabling nature of their symptoms, at this time I recommend surgery in the form of a: C3-T2 decompression fusion . I discussed the risk and benefits of this procedure at length with Mr. Brown. The patient agreed to considered pursuing the procedure abovementioned. Prior to surgery, she should follow up with her PCP (Cardio, ID, IM etc) for clearance. Questions were invited and answered, and the patient wishes to proceed as outlined below. Currently, I am recommendin. C2-T2 decompression fusion Description of Procedure: C2-T2 decompression and fusion The patient was seen and examined in the preoperative area. All preoperative protocols were followed. Informed consent was obtained, risks and benefits of the procedure were discussed at length. Risks including bleeding infection damage to the surrounding tissue and risk of reoperation were discussed with the patient. Risk of anesthesia up to and including was discussed with the patient. These are outlined in the risk review. They were willing to accept these risks and all of the risks of surgery. The patient was given a weight- based dose of antibiotics in the form of 2 g Ancef. The patient was seen and evaluated by the anesthesia team who deemed them fit for surgery. The site was marked, the patient was willing to proceed with the procedure. The patient was transferred to the operative suite by the Department of collette pineda. They were then drifted off to sleep by the department anesthesia and GETA was performed. The patient tolerated this well. pre-positioning motors were obtained.Tapia in place from the floor. Once confirmation of lines and ventilation Amezcua head clamp was placed on the patient and secured and the patient was transferred to a [prone Fabián table very carefully] with the Amezcua overhead irrigator the head was secured and placed into an optimal position x- ray confirmed this position. Post-positioning motors remained stable. All bony prominences including wrists, elbows, axilla, chest, hips, and thighs, and feet were padded very well. Special attention was paid to the genitalia and these were padded accordingly. SCDs were placed on bilateral lower extremities and were connected. Arms were well padded and placed tucked at his side thumbs down. Shoulders were gently taped down to the table.. Once in position, again we confirmed good ventilation capabilities and that lines were running appropriately. The patient's posterior cervical spine was then exposed. 1010s were placed outlining the incision site. Standard alcohol was used to clean the incision site and allowed to dry. C-arm was used to biomark the patient and confirm level for incision which was marked with a skin marker. Operative briefing was performed with all teams and everyone in agreement to proceed. The patient was then prepped and draped in a normal sterile fashion. Timeout was then performed and all parties were in agreement with the procedure to be performed. Midline skin incision made over the previously bio-marked area and dissection taken down midline to the SP of C2-T2. Subperiosteal dissection taken out over the lamina and lateral masses of C2-C7 and TVP of T1 and T2. Once exposure comp lete, the wound was irrigated and the C-arm brought in for imaging. A penfield 4 was used to bluntly dissect the medial border of C2 pedicle and placed for guidance. C arm used and a jacki hole made for the starting point. The C2 pedicle was then drilled in 2 mm increments to 18 mm using a ball tip feeler in between each drill session to make sure within the 4 talbert with a good bottom. Once this was accomplished a screw was selected and placed under lateral fluoroscopic guidance. Screw had a good purchase. This was then repeated on the contralateral side. AP confirmed good placement of both screws. We then proceeded to the T1 and T2 screws bilaterally. A highspeed jacki was used to remove the facet joint of C7 and to create a starting point for T1 and similarly, T1 facet for T2. Pedicle finder was then passed into T1 and T2 and imaging taken to confirm placement this was then removed and a tap placed ball-tipped probe was then placed and 4 talbert of pedicle fell with good bottom. Screw was then measured and placed intoT1 and T2. This is repeated on the contralateral side. Imaging confirmed good placement of all 4 thoracic screws. The wound was then irrigated. Lateral mass screws were then drilled to 12 mm and placed at each level from C3-6. Each had a good bite. Rods were then sized and selected and cut to length. They were bent accordingly and lordosis and to fit the occiput plate. These were then secured into C2 bilaterally and then sequentially reduced into lateral mass screws and T1 and T2 screws without issues. All set screws were placed and were then final tightened and the position. Bilateral laminectomy, facetectomy and foraminotomies were then done from C2-T1 using high speed jacki, kerrison rongeur and up-biting curette. Bilateral laminotomy troughs were made with jacki followed by curette to release ligamentum. Rongure was then used to gently remove the lamina and facets posteriorly without issues. Meticulous hemostasis was performed after.. Motors were run before and after decompression and they remain stable. Good pulsations of the cord were noted after decompression. Foraminotomies then performed with kerrison rongeur and clean up of the laminectomy site. The wound was then copiously irrigated with 3 L of Ancef irrigation followed by 3 L of gentamicin irrigation followed by 3 L of normal sterile saline. Facet joints were drilled at each level to allow for fusion Surgicel was placed over the dura. MagnetOs were placed in the posterior lateral gutters along with autograft.. This was impacted into position for fusion. 2 g of powdered vancomycin was then placed deep within the wound and a deep drain was placed. We then proceeded with layered closure first in the deep fascia with #1 PDS then in the deep fascia. 0 Vicryl was used in the deep subq fascia and an 0 PDS stratafix used in the subdermal layer. Skin christ then approximated skin edges. The wound edges approximated very well. The wound was then cleaned and dressed sterilely with an operative foam dressing 4 x 4 and Tegaderm. The drain had good suction. The patient was placed in a hard cervical collar. The patient was transferred back to their hospital bed atraumatically. Amezcua head clamp was removed and pin sites were clear. Drain continued to hold suction. Patient was placed in a hard collar Patient was then awakened and ex tubated by the department of anesthesia having tolerated the procedure very well with no complications. They were transferred to the postoperative care unit in stable condition.
[2024-11-25] MEDS: LACTATED RINGERS 1,000 ML IV ONE (12:15)
[2024-11-25] MEDS ORDERED: HYDROcodone/APAP 5-325MG 1 EACH TAB PO PRN (12:38)
[2024-11-25] MEDS ORDERED: HYDROmorphone 0.5 MG/0.5 ML SYRINGE IVP PRN (12:38)
[2024-11-25] MEDS ORDERED: ONDANSETRON 4 MG/2 ML VIAL IVP PRN (12:38)
--- NOTE | 2024-11-25 12:38 | XR ---
EXAMINATION TYPE: XR cervical spine limited, [place] guidance operating room Intraoperative/procedural flu oroscopic services were provided. CLINICAL INDICATION:Male, 59 years old with history of Cervical fusion; , [facility] FINDINGS: Postsurgical changes from posterior cervical fusion with bilateral pedicular screws and rods. Anterio r cervical fusion however demonstrated. No radiographic evidence for complication. Total fluoroscopy time is 32.3 seconds. DAP: 0.8001 Gycm2 Please see the operative/procedural note for further details. [facility], , 11/25/2024 12:36 PM
[2024-11-25] MEDS: HYDROmorphone 0.5 MG/0.5 ML SYRINGE IVP PRN (13:11)
[2024-11-25 16:02] LABS: Glucose,Whole Blood 171 mg/dL (70-110)
[2024-11-25] MEDS ORDERED: MAGNESIUM OXIDE 400 MG TAB PO PRN (17:34)
[2024-11-25] MEDS ORDERED: DEXTROSE 50% SYRINGE 50 ML IVP PRN ×2 (17:36)
[2024-11-25] MEDS: GABAPENTIN 300 MG CAP PO SCH (17:44)
--- NOTE | 2024-11-25 18:29 | CT ---
EXAMINATION TYPE: CT cervical spine wo con DATE OF EXAM: 11/25/2024 6:15 PM COMPARISON: CT CLINICAL INDICATION: Male, 59 years old with history of s/p c2-t2 posterior cevical decompr fusion; c 2-t2 post cerv decomp fusion TECHNIQUE: Axial CT images from the skull base to the inferior aspect of T2 we obtained without intra venous contrast. Coronal and sagittal reformatted images were also reviewed. Contrast used: mL of , (if blank None) Oral contrast used: (if blank None) CT DLP: 466.2 mGycm, Automated exposure control for dose reduction was used. FINDINGS: Postsurgical changes posteriorly at C2-T2. Postsurgical changes anteriorly at C4-C5, C5-C6 and C6-C7 hardware appears intact. There is drainage catheter in the posterior neck palpable with recent surger y. Subcutaneous gas in the tissues of the posterior neck compatible surgery No evidence for acute fra cture. There is fusion of C4-C5 and C5-C6 and C6-C7 disc spaces. Cardiac conduction leads partially visualized. Mild degeneration changes throughout the remainder of the spine. Lung parenchyma demonstrates calcified granuloma in the right lung apex medially. IMPRESSION: Postsurgical changes no evidence for immediate postop completion. [facility], , 11/25/2024 6:27 PM
[2024-11-25] MEDS: ACETAMINOPHEN TAB 325 MG TAB PO SCH (18:45)
[2024-11-25] MEDS: HYDROmorphone 1 MG/ML 1 ML SYRINGE IVP PRN (18:46)
[2024-11-25 20:23] LABS: Glucose,Whole Blood 208 mg/dL (70-110)
[2024-11-25] MEDS: DICYCLOMINE 20 MG TAB PO SCH (21:09)
[2024-11-25] MEDS: INSULIN LISPRO (HumaLOG) 100 UNIT/ML 10 mL VL SQ SCH (21:09)
[2024-11-25] MEDS: PANTOPRAZOLE 40 MG TABLET PO SCH (21:09)
[2024-11-25] MEDS: HYDROcodone/APAP 10-325MG 1 EACH TAB PO PRN (21:10)
[2024-11-25] MEDS: METOPROLOL SUCCINATE (ER) 100 MG TAB.ER.24H PO SCH (21:17)
[2024-11-26] MEDS: CYCLOBENZAPRINE 5 MG TAB PO PRN (01:30)
[2024-11-26 06:09] LABS: Glucose,Whole Blood 172 mg/dL (70-110)
[2024-11-26] MEDS: SENNOSIDES-DOCUSATE SODIUM 1 EACH TAB PO PRN (06:49)
[2024-11-26] MEDS: INSULIN GLARGINE (LANTUS) 100 UNIT/ML SYR SQ SCH (06:50)
--- NOTE | 2024-11-26 07:34 | P.PN ---
Subjective Progress Note Date: 11/26/24 Bev Brown presents with the chief complaint of "couldn't sleep" due to pain following recent surgery. Patient reports being unable to sleep, stating he is "hurting so bad, doze off, but then I wake up." He mentions getting only 15 minutes of sleep at a time before waking up again due to discomfort. Patient reports bilateral leg soreness that began Monday night, prior to the surgical procedure. He describes the affected areas as warm but denies any redness. The soreness was present while "just sitting in the chair" before coming to the hospital. Patient expresses hope that once everything heals, including his hand, he will experience improvement in symptoms such as lightheadedness and dizziness when looking up. He anticipates potential discharge on or Monday. Additional Context: - Recent spine surgery completed successfully in approximately 1 hr - Surgery addressed bone collapse at one level with posterior approach to restore alignment - Catheter has been removed - Patient has assistance with bathroom needs - Mentions concurrent hernia causing additional pain - Pain management consultation noted Objective Patient is alert and oriented 3 appears well-nourished well-hydrated is in no acute distress. They do not appear septic. On exam the patient has no tenderness to palpation of her thoracic or lumbar spine. There is no edema or ballottement sign. Incision is clean and dry Drain in place about 50 cc in drain currently Upper extremities show 4+/5 strength in all major muscle groups. Lower extremities with 4+/5 strength in all major muscle groups Some burning in bilateral lower extremities in the lateral femoral cutaneous nerve distribution however this is started before surgery the patient states [2]/4DTR all UE and LE b/l Patient shows a negative Homans, Morales's, negative Babinski's negative clonus bilaterally. negative straight leg raise bilaterally. No tensioning signs. Cranial nerves II through XII are grossly intact. There is FROM that is painless of the b/l UE and LE in all major joints [w/o pain]. They are intact to light touch sensation in L2 to S1 nerve distribution. Patient has palpable dorsalis pedis was posterior tibial pulses. Compartments are soft and compressible. Assessment 1. POD #1 C2-T2 PCDF 2. Neck pain 3. UE radiculopathy Plan -Appreciate csm consultant and team management. -Activity: Ambulate QID, OOB all meals, up and about, limit lifting bending twisting to less than 5 lbs. Use walker or cane if needed for stability. -Daily PT/OT, increase ambulation strength and balance. - Hard cervical collar when up and about okay to take breaks from it throughout the day -Pain control: Increased pain medication as needed -Meds: [reviewed] -GI ppx: senna, Miralax -DC del cid when up and about, bedside commode if needed -DVT PPX: [OK to restart Heparin tonight] -Hygiene: Shower today. Maintain dressing clean and dry. Meticulous cleaning after BMs away from incision site -Drains: [Maintain for now. Record output] -Encourage IS 10x/hr -Dispo: Home in 1 to 2 days with home health care Objective - Vital Signs Vital signs: Vital Signs Temp 98.8 F 11/26/24 06:54 Pulse 91 11/26/24 06:54 Resp 18 11/26/24 06:54 BP 135/80 11/26/24 06:54 Pulse Ox 94 L 11/26/24 06:54 FiO2 Intake & Output 11/25/24 11/26/24 11/26/24 18:59 06:59 18:59 Intake Total 2492 Output Total 950 1210 Balance 1542 -1210 Weight 95.9 kg Intake: IV 2252 Oral 240 Output: Drainage 110 Posterior Neck 110 Urine 800 1100 Estimated Blood Loss 150 Other: Voiding Method Indwelling Catheter - Labs Labs: Abnormal Lab Results - Last 24 Hours (Table) 11/25/24 11/25/24 11/26/24 Range/Units 15:53 20:19 06:06 POC Glucose (mg/dL) 171 H 208 H 172 H (70-110) mg/dL
[2024-11-26 08:26] LABS: Anion Gap 12.30 mmol/L (4.00-12.00); BUN/Creat Ratio 17.64 Ratio (12.00-20.00); Blood Urea Nitrogen 19.4 mg/dL (9.0-27.0); Calcium 8.9 mg/dL (8.7-10.3); Carbon Dioxide 22.7 mmol/L (21.6-31.8); Chloride 104 mmol/L (96-109); Glucose 192 mg/dL (70-110); Potassium 4.4 mmol/L (3.5-5.5); Sodium 139 mmol/L (135-145)
[2024-11-26 08:31] LABS: Basophils # (A) 0.01 X 10*3/uL (0.00-0.10); Basophils % (A) 0.1 %; Eosinophils # (A) 0.01 X 10*3/uL (0.04-0.35); Eosinophils % (A) 0.1 %; HCT 36.3 % (39.6-50.0); HGB 11.7 g/dL (13.0-17.0); Immature Grans, Automated 0.50 %; Lymphocytes # (A) 1.27 X 10*3/uL (0.90-5.00); Lymphocytes % (A) 13.1 %; MCH 30.1 pg (27.0-32.0); MCHC 32.2 g/dL (32.0-37.0); MCV 93.3 FL (80.0-97.0); Monocytes # (A) 0.58 X 10*3/uL (0.20-1.00); Monocytes % (A) 6.0 %; NRBC Per 100 WBC 0 X 10*3/uL (0.00-0.01); Neutrophils # (A) 7.78 X 10*3/uL (1.80-7.70); Neutrophils % (A) 80.2 %; Platelet Count 172 X 10*3/uL (140-440); RBC 3.89 X 10*6/uL (4.40-5.60); RDW 13.6 % (11.5-14.5); WBC 9.70 X 10*3/uL (4.50-10.00)
[2024-11-26] MEDS: CHOLECALCIFEROL 25 MCG (1000 IU) TABLET PO SCH (08:56)
[2024-11-26] MEDS: EZETIMIBE 10 MG TAB PO SCH (08:57)
[2024-11-26] MEDS: PIOGLITAZONE 15 MG TAB PO SCH (08:58)
[2024-11-26] MEDS: LOSARTAN 50 MG TAB PO SCH (08:58)
[2024-11-26] MEDS: LORATADINE 10 MG TAB PO SCH (08:58)
[2024-11-26] MEDS: ALBUTEROL NEBULIZED 2.5 MG/3 ML INHALATION PRN (09:44)
[2024-11-26 10:58] LABS: Glucose,Whole Blood 189 mg/dL (70-110)
--- NOTE | 2024-11-26 11:58 | P.ANPRN ---
Procedure Note - Anesthesia - Invasive Line Right Arterial Line Time Out Performed: Yes Date of Procedure: 11/25/24 Location of Patient: PreOp Preparation: Sterile Prep, Sterile Dressing Arterial Line Location: Radial Ultrasound Used: No Purpose - Visualization and Identification of Vasculature: No Image Stored and Saved: No Narrative: Invasive line placement per sterile protocol utilized.
--- NOTE | 2024-11-26 14:57 | P.CONS ---
History of Present Illness - Reason for Consult Consult date: 11/26/24 Medical management - History of Present Illness History of present illness; patient 59-year-old gentleman with past medical history significant for presented the hospital for elective C3-T2 decompression fusion. Patient had been following up outpatient with orthopedic spine for upper extremity weakness and neck pain. Patient discussed all treatment options and decision was to proceed with surgery. Postoperatively internal medicine team were consulted for medical management REVIEW OF SYSTEMS: CONSTITUTIONAL: No fever, no malaise, no fatigue. HEENT: No recent visual problems or hearing problems. Denied any sore throat. CARDIOVASCULAR: No chest pain, orthopnea, PND, no palpitations, no syncope. PULMONARY: No shortness of breath, no cough, no hemoptysis. GASTROINTESTINAL: No diarrhea, no nausea, no vomiting, no abdominal pain. NEUROLOGICAL: No headaches, no weakness, no numbness. HEMATOLOGICAL: Denies any bleeding or petechiae. GENITOURINARY: Denies any burning micturition, frequency, or urgency. MUSCULOSKELETAL/RHEUMATOLOGICAL: Neck pain ENDOCRINE: Denies any polyuria or polydipsia. The rest of the 14-point review of systems is negative. PHYSICAL EXAMINATION: GENERAL: The patient is alert and oriented x3, cervical collar in place HEENT: Pupils are round and equally reacting to light. EOMI. No scleral icterus. No conjunctival pallor. Normocephalic, atraumatic. No pharyngeal erythema. No thyromegaly. CARDIOVASCULAR: S1 and S2 present. No murmurs, rubs, or gallops. PULMONARY: Chest is clear to auscultation, no wheezing or crackles. ABDOMEN: Soft, nontender, nondistended, normoactive bowel sounds. No palpable organomegaly. MUSCULOSKELETAL: No joint swelling or deformity. EXTREMITIES: No cyanosis, clubbing, or pedal edema. NEUROLOGICAL: Gross neurological examination did not reveal any focal deficits. SKIN: Anterior cervical incision with drain seen Assessment and plan C3-7 CERVICAL STENOSIS WITH RADICULOPATY BILATERAL UPPER EXTREMITY WEAKNESS CERVICAL MYELOPATHY History of C4-7 ACDF WITH KYPHOTIC COLLAPSE Hypertension Hyperlipidemia Diabetes mellitus Monitor vital signs Monitor CBC Continue pain management per orthopedics Continue DVT prophylaxis per orthopedics Aggressive bowel regimen to prevent opioid-induced constipation Resume home meds PT and OT consulted Labs and medication were reviewed.. Continue same treatment. Continue with symptomatic treatment. Resume home medication. Monitor labs and vitals. DVT and GI prophylaxis. Further recommendations as per clinical course of the patient Dictation was produced using [employer] dictation software. please excuse any grammatical, word or spelling errors. Past Medical History Past Medical History: COPD, Diabetes Mellitus, GERD/Reflux, Hyperlipidemia, Hypertension Additional Past Medical History / Comment(s): pinched nerve L3-4, DDD, Type II DM, PPM, hx. bilat. leg cellulitis - none currently, hx. - infected scrotum - resolved, bleeding ulcer History of Any Multi-Drug Resistant Organisms: None Reported Past Surgical History: Appendectomy, Breast Surgery, Cholecystectomy, Hernia Rep air, Pacemaker Additional Past Surgical History / Comment(s): ventral hernia repair 2022, Lt. 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 Past Anesthesia/Blood Transfusion Reactions: No Reported Reaction Additional Past Anesthesia/Blood Transfusion Reaction / Comm: no reaction to blood transfusion Type of Cardiac Device: Permanent Pacemaker Device Placement Date:: 2021 Past Psychological History: No Psychological Hx Reported Smoking Status: Former smoker Past Alcohol Use History: None Reported Additional Past Alcohol Use History / Comment(s): quit smoking 2011, smoked 1.5ppd x 20 yrs Past Drug Use History: None Reported - Past Family History Father Family Medical History: No Reported History Mother Family Medical History: No Reported History Medications and Allergies Home Medications Medication Instructions Recorded Confirmed Type Aspirin [Ray Aspirin EC] 81 mg PO DAILY 01/31/24 11/25/24 History Cholecalciferol [Vitamin D3 (25 1 tab PO DAILY 01/31/24 11/25/24 History Mcg = 1000 Iu)] Dicyclomine HCl 20 mg PO BID 01/31/24 11/25/24 History Dulaglutide [Trulicity] 0.75 mg SQ Q7D 01/31/24 11/25/24 History Dupilumab [Dupixent Pen] 300 mg SQ Q14D 01/31/24 11/25/24 History Insulin Glargine,Hum.rec.anlog 40 units SQ QAM 01/31/24 11/25/24 History [Lantus Solostar Pen] Insulin Lispro [humaLOG Kwikpen] 10 units SQ BID 01/31/24 11/25/24 History Magnesium 1 tab PO HS PRN 01/31/24 11/25/24 History Metoprolol Succinate (ER) [Toprol 100 mg PO HS 01/31/24 11/25/24 History XL] Pantoprazole [Protonix] 1 tab PO HS 01/31/24 11/25/24 History Albuterol Inhaler [Ventolin Hfa 90 mcg IH DAILY PRN 03/08/24 11/25/24 History Inhaler] Cetirizine HCl 10 mg PO DAILY 03/08/24 11/25/24 History EPINEPHrine (Auto Inject) [Epipen] 0.3 mg IM ONCE PRN 03/08/24 11/25/24 History Ezetimibe [Zetia] 10 mg PO DAILY 03/08/24 11/25/24 History Pioglitazone [Actos] 15 mg PO DAILY 03/08/24 11/25/24 History Losartan [Cozaar] 100 mg PO DAILY 08/27/24 11/25/24 History Empagliflozin [Jardiance] 25 mg PO DAILY 11/20/24 11/25/24 History Pregabalin [Lyrica] 100 mg PO BID 30 Days #60 cap 11/20/24 11/25/24 Rx Allergies Allergy/AdvReac Type Severity Reaction Status Date / Time bee pollen Allergy Anaphylaxis Verified 11/25/24 08:27 cephalexin [From Keflex] Allergy Rash/Hives Verified 11/25/24 08:27 lisinopril Allergy Anaphylaxis Verified 11/25/24 08:27 Penicillins Allergy Anaphylaxis Verified 11/25/24 08:27 Sulfa (Sulfonamide Allergy Rash/Hives Verified 11/25/24 08:27 Antibiotics) sulfamethoxazole Allergy Rash/Hives Verified 11/25/24 08:27 [From Bactrim] trimethoprim [From Bactrim] Allergy Rash/Hives Verified 11/25/24 08:27 Physical Exam Vitals: Vital Signs Temp Pulse Pulse Pulse Resp BP Pulse Ox 11/26/24 13:39 98.3 F 74 18 126/76 96 11/26/24 09:52 88 11/26/24 09:44 82 11/26/24 06:54 98.8 F 91 18 135/80 94 L 11/26/24 02:30 98.3 F 95 18 150/84 93 L 11/25/24 19:31 97.5 F L 84 18 145/89 96 11/25/24 16:25 97.1 F L 60 18 163/91 95 11/25/24 16:20 60 12 159/89 94 L 11/25/24 16:00 70 12 146/88 96 11/25/24 15:30 80 18 125/72 94 L 11/25/24 15:00 60 12 119/69 97 Intake and Output 11/25/24 11/26/24 11/26/24 22:59 06:59 14:59 Intake Total 440 720 Output Total 650 1160 30 Balance -210 -1160 690 Intake: IV 200 Oral 240 720 Output: Drainage 50 60 30 Posterior Neck 50 60 30 Urine 600 1100 Other: Voiding Method Indwelling Catheter # Voids 1 Weight 95.9 kg Results CBC & Chem 7: 11/26/24 02:37 11/26/24 02:37 Labs: Abnormal Lab Results - Last 24 Hours (Table) 11/25/24 11/25/24 11/26/24 Range/Units 15:53 20:19 02:37 RBC (4.40-5.60) X 10*6/uL Hgb (13.0-17.0) g/dL Hct (39.6-50.0) % Immature Gran # (0.00-0.04) X 10*3/uL Neutrophils # (1.80-7.70) X 10*3/uL Eosinophils # (0.04-0.35) X 10*3/uL Anion Gap (4.00-12.00) mmol/L Glucose (70-110) mg/dL POC Glucose (mg/dL) 171 H 208 H (70-110) mg/dL Hemoglobin A1c 6.8 H (<=6.0) % 11/26/24 11/26/24 11/26/24 Range/Units 02:37 02:37 06:06 RBC 3.89 L (4.40-5.60) X 10*6/uL Hgb 11.7 L (13.0-17.0) g/dL Hct 36.3 L (39.6-50.0) % Immature Gran # 0.05 H (0.00-0.04) X 10*3/uL Neutrophils # 7.78 H (1.80-7.70) X 10*3/uL Eosinophils # 0.01 L (0.04-0.35) X 10*3/uL Anion Gap 12.30 H (4.00-12.00) mmol/L Glucose 192 H (70-110) mg/dL POC Glucose (mg/dL) 172 H (70-110) mg/dL Hemoglobin A1c (<=6.0) % 11/26/24 Range/Units 10:56 RBC (4.40-5.60) X 10*6/uL Hgb (13.0-17.0) g/dL Hct (39.6-50.0) % Immature Gran # (0.00-0.04) X 10*3/uL Neutrophils # (1.80-7.70) X 10*3/uL Eosinophils # (0.04-0.35) X 10*3/uL Anion Gap (4.00-12.00) mmol/L Glucose (70-110) mg/dL POC Glucose (mg/dL) 189 H (70-110) mg/dL Hemoglobin A1c (<=6.0) %
[2024-11-26 16:46] LABS: Glucose,Whole Blood 197 mg/dL (70-110)
[2024-11-26 21:53] LABS: Glucose,Whole Blood 177 mg/dL (70-110)
[2024-11-27 06:13] LABS: Glucose,Whole Blood 159 mg/dL (70-110)
[2024-11-27] MEDS: DAPAGLIFLOZIN PROPANEDIOL 10 MG TABLET PO SCH (08:47)
[2024-11-27] MEDS: CYCLOBENZAPRINE 5 MG TAB PO SCH (08:47)
[2024-11-27] MEDS: SENNOSIDES-DOCUSATE SODIUM 1 EACH TAB PO SCH (08:47)
[2024-11-27] MEDS: HYDROcodone/APAP 10-325MG 1 EACH TAB PO SCH (08:48)
--- NOTE | 2024-11-27 09:38 | P.PN ---
Subjective Progress Note Date: 11/27/24 Principal diagnosis: 1. S/P C4-7 ACDF WITH KYPHOTIC COLLAPSE 2. C3-7 CERVICAL STENOSIS WITH RADICULOPATY 3. BUE WEAKNESS 4. CERVICAL MYELOPATHY Patient seen and examined this morning. Patient is sitting up in bed. Patient does report increased pain in the posterior cervical spine that radiates into the left shoulder. Discussed pain management with patient and notified him that medications will be adjusted. Surgical incision to the posterior cervical spine, edges are well-approximated with christ intact. Hemovac drain has been removed and new dressing applied. Patient states that he has been ambulating within room and tolerating activity well. Discharge discussed for tomorrow 11/28/2024. Objective - Vital Signs Vital signs: Vital Signs Temp 98.0 F 11/27/24 07:23 Pulse 92 11/27/24 07:23 Resp 16 11/27/24 07:23 BP 114/82 11/27/24 07:23 Pulse Ox 94 L 11/27/24 07:23 FiO2 Intake & Output 11/26/24 11/27/24 11/27/24 18:59 06:59 18:59 Intake Total 1080 Output Total 50 10 Balance 1030 -10 Intake: Oral 1080 Output: Drainage 50 10 Posterior Neck 50 10 Other: Voiding Method Toilet # Voids 3 1 - Exam Physical Examination General: The patient is awake and alert, in no acute distress. Skin: Skin is warm and dry with no obvious rashes or lesions. Surgical incision to the posterior cervical spine, edges well-approximated with christ intact. No active drainage. Hemovac drain has been removed. Eye: Pupils are equal, round and reactive to light, extra-ocular movements are intact; there is normal conjunctiva bilaterally. Neck: The neck is supple, there is no tenderness and ROM intact. Respiratory: Respirations are non-labored. Gastrointestinal: Soft, non-distended, non-tender abdomen. Back: There is no tenderness to palpation in the midline, paralumbar, parathoracic or buttocks region. There is no obvious deformity. Musculoskeletal: ROM limited secondary to pain and stiffness from surgical procedure. Right: Shoulder abduction 5/5, elbow flexors 5/5, wrist dorsiflexors 5/5. finger abductor 5/5, gas controller 5/5, hip flexor 5/5, knee flexor 5/5, ankle dorsiflexor 5/5, ankle plantarflexion 5/5 and extensor hallucis 5/5 Left: Shoulder abduction 4/5, elbow flexors 4/5, wrist dorsiflexors 4/5. finger abductor 4/5, gas controller 4/5, hip flexor 5/5, knee flexor 5/5, ankle dorsiflexor 5/5, ankle plantarflexion 5/5 and extensor hallucis 5/5. Neurological: CN 2-12 intact. There are no obvious motor or sensory deficits. Movement and coordination equal and intact. Sensory exam to light touch intact C5-T1 and intact from L2-S1. Reflexes 2/4 in bilateral upper and lower extremities. Negative Hoffmans, babinski, and clonus signs. Psychiatric: Cooperative, appropriate mood & affect, normal judgment. - Labs CBC & Chem 7: 11/26/24 02:37 11/26/24 02:37 Labs: Abnormal Lab Results - Last 24 Hours (Table) 11/26/24 11/26/24 11/26/24 Range/Units 02:37 02:37 10:56 RBC 3.89 L (4.40-5.60) X 10*6/uL Hgb 11.7 L (13.0-17.0) g/dL Hct 36.3 L (39.6-50.0) % Immature Gran # 0.05 H (0.00-0.04) X 10*3/uL Neutrophils # 7.78 H (1.80-7.70) X 10*3/uL Eosinophils # 0.01 L (0.04-0.35) X 10*3/uL Anion Gap 12.30 H (4.00-12.00) mmol/L Glucose 192 H (70-110) mg/dL POC Glucose (mg/dL) 189 H (70-110) mg/dL 11/26/24 11/26/24 11/27/24 Range/Units 16:44 21:52 06:12 RBC (4.40-5.60) X 10*6/uL Hgb (13.0-17.0) g/dL Hct (39.6-50.0) % Immature Gran # (0.00-0.04) X 10*3/uL Neutrophils # (1.80-7.70) X 10*3/uL Eosinophils # (0.04-0.35) X 10*3/uL Anion Gap (4.00-12.00) mmol/L Glucose (70-110) mg/dL POC Glucose (mg/dL) 197 H 177 H 159 H (70-110) mg/dL Assessment and Plan Assessment: Postop day 2: C2-T2 decompression and fusion Plan: -Appreciate procurement consultant and team management. -Activity: Ambulate QID, OOB all meals, up and about, limit lifting bending twisting to less than 5 lbs. Use walker or cane if needed for stability. -Daily PT/OT, increase ambulation strength and balance. -Odell Hard cervical collar at all times, may remove for showers. -Pain control: Medications adjusted -Meds: reviewed -GI ppx: senna, Miralax -DVT PPX: Aspirin 81mg daily -Hygiene: Maintain incision clean and dry. May change dressing as needed, please document in notes if performed. -Encourage IS 10x/hr -Dispo: Anticipate discharge home with homecare 11/28/24. *I reviewed and discussed this case with my attending Dr. Dong, whom has reviewed this chart and films and is in agreement with assessment and plan of care as outlined above. I have personally seen and examined the patient, performed the documentation and the assessment and plan as written. Number of minutes spent on the visit: 20m.
[2024-11-27 11:07] LABS: Glucose,Whole Blood 141 mg/dL (70-110)
--- NOTE | 2024-11-27 15:00 | P.PN ---
Subjective Progress Note Date: 11/27/24 59-year-old gentleman with past medical history significant for presented the hospital for elective C3-T2 decompression fusion. Patient had been following up outpatient with orthopedic spine for upper extremity weakness and neck pain. Patient discussed all treatment options and decision was to proceed with surgery. Postoperatively internal medicine team were consulted for medical management 11/27. Patient seen and examined. States still having a lot of pain. Patient drain was removed by surgery today REVIEW OF SYSTEMS: CONSTITUTIONAL: No fever, no malaise,. CARDIOVASCULAR: No chest pain, no palpitations, no syncope. PULMONARY: No shortness of breath, no cough, GASTROINTESTINAL: No diarrhea, no nausea, no vomiting, no abdominal pain. NEUROLOGICAL: No headaches, no weakness, PHYSICAL EXAMINATION: GENERAL: The patient is alert and oriented x3, not in any acute distress. Well developed, well nourished. HEENT: Pupils are round and equally reacting to light. EOMI. No scleral icterus. No conjunctival pallor. Normocephalic, atraumatic. No pharyngeal erythema. No thyromegaly. CARDIOVASCULAR: S1 and S2 present. No murmurs, rubs, or gallops. PULMONARY: Chest is clear to auscultation, no wheezing or crackles. ABDOMEN: Soft, nontender, nondistended, normoactive bowel sounds. No palpable organomegaly. MUSCULOSKELETAL: No joint swelling or deformity. EXTREMITIES: No cyanosis, clubbing, or pedal edema. NEUROLOGICAL: Gross neurological examination did not reveal any focal deficits. SKIN: Posterior cervical surgical incision seen Assessment and plan C3-7 CERVICAL STENOSIS WITH RADICULOPATY BILATERAL UPPER EXTREMITY WEAKNESS CERVICAL MYELOPATHY History of C4-7 ACDF WITH KYPHOTIC COLLAPSE Hypertension Hyperlipidemia Diabetes mellitus Monitor vital signs Monitor CBC Continue pain management per orthopedics Continue DVT prophylaxis per orthopedics Aggressive bowel regimen to prevent opioid-induced constipation Monitor blood sugar levels, continue current insulinRegimen Continue losartan, Toprol PT OT following Labs and medication were reviewed.. Continue same treatment. Continue with symptomatic treatment. Resume home medication. Monitor labs and vitals. DVT and GI prophylaxis. Further recommendations as per clinical course of the patient Dictation was produced using [employer] dictation software. please excuse any grammatical, word or spelling errors. Objective - Vital Signs Vital signs: Vital Signs Temp 98.1 F 11/27/24 13:57 Pulse 80 11/27/24 13:57 Resp 16 11/27/24 13:57 BP 132/78 11/27/24 13:57 Pulse Ox 93 L 11/27/24 13:57 FiO2 Intake & Output 11/26/24 11/27/24 11/27/24 18:59 06:59 18:59 Intake Total 1080 Output Total 50 10 Balance 1030 -10 Intake: Oral 1080 Output: Drainage 50 10 Posterior Neck 50 10 Other: Voiding Method Toilet Toilet # Voids 3 1 - Labs CBC & Chem 7: 11/26/24 02:37 11/26/24 02:37 Labs: Abnormal Lab Results - Last 24 Hours (Table) 11/26/24 11/26/24 11/27/24 Range/Units 16:44 21:52 06:12 POC Glucose (mg/dL) 197 H 177 H 159 H (70-110) mg/dL 11/27/24 Range/Units 11:06 POC Glucose (mg/dL) 141 H (70-110) mg/dL
[2024-11-27 16:21] LABS: Glucose,Whole Blood 149 mg/dL (70-110)
[2024-11-27 20:56] LABS: Glucose,Whole Blood 176 mg/dL (70-110)
[2024-11-27 22:00] LABS: Glucose,Whole Blood 160 mg/dL (70-110)
[2024-11-28 02:06] VITALS: RESP 17
[2024-11-28] MEDS: oxyCODONE-APAP 7.5-325MG 1 EACH TAB PO SCH ×2 (02:14→08:48)
[2024-11-28] MEDS ORDERED: oxyCODONE-APAP 7.5-325MG 1 EACH TAB PO PRN (02:30)
[2024-11-28 06:08] LABS: Glucose,Whole Blood 133 mg/dL (70-110)
[2024-11-28 07:22] VITALS: BP 119/73; PULSE 96; TEMP 98.5
--- NOTE | 2024-11-28 08:41 | P.PN ---
Subjective Progress Note Date: 11/28/24 Principal diagnosis: 1. S/P C4-7 ACDF WITH KYPHOTIC COLLAPSE 2. C3-7 CERVICAL STENOSIS WITH RADICULOPATY 3. BUE WEAKNESS 4. CERVICAL MYELOPATHY Patient seen and examined this morning. Patient is resting comfortably in bed. Patient does report that his pain is managed on current regimen, although he continues to report a sharp pain into the left upper extremity. Patient states that he has been utilizing ice packs as directed. Surgical incision to the posterior cervical spine, dressing is clean dry and intact. Discharge instructions have been discussed. Objective - Vital Signs Vital signs: Vital Signs Temp 98.5 F 11/28/24 07:21 Pulse 96 11/28/24 07:21 Resp 17 11/28/24 07:21 BP 119/73 11/28/24 07:21 Pulse Ox 94 L 11/28/24 07:21 FiO2 Intake & Output 11/27/24 11/28/24 11/28/24 18:59 06:59 18:59 Other: Voiding Method Toilet Toilet # Voids 4 - Exam Physical Examination General: The patient is awake and alert, in no acute distress. Skin: Skin is warm and dry with no obvious rashes or lesions. Surgical incision to the posterior cervical spine, dressing is clean dry and intact. Eye: Pupils are equal, round and reactive to light, extra-ocular movements are intact; there is normal conjunctiva bilaterally. Neck: The neck is supple, there is no tenderness and ROM intact. Respiratory: Respirations are non-labored. Gastrointestinal: Soft, non-distended, non-tender abdomen. Back: There is no tenderness to palpation in the midline, paralumbar, parathoracic or buttocks region. There is no obvious deformity. Musculoskeletal: ROM limited secondary to pain and stiffness from surgical procedure. Right: Shoulder abduction 5/5, elbow flexors 5/5, wrist dorsiflexors 5/5. finger abductor 5/5, principal account clerk 5/5, hip flexor 5/5, knee flexor 5/5, ankle dorsiflexor 5/5, ankle plantarflexion 5/5 and extensor hallucis 5/5 Left: Shoulder abduction 4/5, elbow flexors 4/5, wrist dorsiflexors 4/5. finger abductor 4/5, principal account clerk 4/5, hip flexor 5/5, knee flexor 5/5, ankle dorsiflexor 5/5, ankle plantarflexion 5/5 and extensor hallucis 5/5. Neurological: CN 2-12 intact. There are no obvious motor or sensory deficits. Movement and coordination equal and intact. Sensory exam to light touch intact C5-T1 and intact from L2-S1. Reflexes 2/4 in bilateral upper and lower extremities. Negative Hoffmans, babinski, and clonus signs. Psychiatric: Cooperative, appropriate mood & affect, normal judgment. - Labs CBC & Chem 7: 11/26/24 02:37 11/26/24 02:37 Labs: Abnormal Lab Results - Last 24 Hours (Table) 11/27/24 11/27/24 11/27/24 Range/Units 11:06 16:20 20:53 POC Glucose (mg/dL) 141 H 149 H 176 H (70-110) mg/dL 11/27/24 11/28/24 Range/Units 21:58 06:06 POC Glucose (mg/dL) 160 H 133 H (70-110) mg/dL Assessment and Plan Assessment: Postop day 3: C2-T2 decompression and fusion Plan: -Appreciate it solutions sales consultant and team management. -Activity: Ambulate QID, OOB all meals, up and about, limit lifting bending twisting to less than 5 lbs. Use walker or cane if needed for stability. -Daily PT/OT, increase ambulation strength and balance. -Thompson Hard cervical collar at all times, may remove for showers. -Pain control: Medications adjusted -Meds: reviewed -GI ppx: senna, Miralax -DVT PPX: Aspirin 81mg daily -Hygiene: Maintain incision clean and dry. May change dressing as needed, please document in notes if performed. -Encourage IS 10x/hr -Dispo: Discharge home with homecare. *I reviewed and discussed this case with my attending Dr. Dong, whom has reviewed this chart and films and is in agreement with assessment and plan of care as outlined above. I have personally seen and examined the patient, performed the documentation and the assessment and plan as written. Number of minutes spent on the visit: 20m.
--- NOTE | 2024-11-28 08:42 | P.DS ---
Providers Date of admission: 11/25/24 07:59 Expected date of discharge: 11/28/24 Attending physician: Ramirez Dong DO Consults: 11/25/24 12:38 Consult Physician Routine Consulting Provider: Ananya Rodriguez Reason/Comments: medical management s/p c2-t2 posterior cevircal decompr fusion Do you want consulting provider notified?: Yes Primary care physician: Srinath Sharpe MD Hospital Course: Hospital Course: The patient was evaluated preoperatively and found to have the diagnosis of cervical spondylosis with stenosis. They underwent appropriate preoperative care and were willing to undergo the intended procedure. They underwent a successful C2-T2 decompression and fusion, were recovered appropriately and sent to the floor. While on the floor they worked with physical therapy, occupational therapy and nursing to enhance their recovery experience. Their pain was well controlled through their stay and they were started on appropriate medications, DVT ppx modalities, activity and dietary needs. Daily labs were monitored closely, and transfusions were only used when necessary. Medicine as well as other consulting services have made their input and have helped with our team approach and multidisciplinary care. PT milestones have been met and passed and they have made the recommendation of home with home care for this patient and treating providers agree with this care path. The patient will be discharged home with appropriate medications, instructions and follow-up information and in stable condition. Patient Condition at Discharge: Good Plan - Discharge Summary Discharge Rx Participant: No New Discharge Prescriptions: New Cyclobenzaprine [Flexeril] 5 mg PO TID PRN #40 tablet PRN Reason: Muscle Spasm oxyCODONE HCL/ACETAMINOPHEN [Percocet 7.5-325 mg] 1 tab PO Q4HR PRN #40 tab PRN Reason: Pain Sennosides/Docusate Sodium [Senna Plus 8.6-50 mg Tablet] 2 each PO DAILY PRN #20 tab PRN Reason: Constipation metroNIDAZOLE [Flagyl] 500 mg PO BID #10 tab No Action Dupilumab [Dupixent Pen] 300 mg SQ Q14D Dulaglutide [Trulicity] 0.75 mg SQ Q7D Metoprolol Succinate (ER) [Toprol XL] 100 mg PO HS Magnesium 1 tab PO HS PRN PRN Reason: sleep Insulin Lispro [humaLOG Kwikpen] 10 units SQ BID Cholecalciferol [Vitamin D3 (25 Mcg = 1000 Iu)] 1 tab PO DAILY Ezetimibe [Zetia] 10 mg PO DAILY Albuterol Inhaler [Ventolin Hfa Inhaler] 90 mcg IH DAILY PRN PRN Reason: Shortness Of Breath Empagliflozin [Jardiance] 25 mg PO DAILY Pantoprazole [Protonix] 1 tab PO HS Insulin Glargine,Hum.rec.anlog [Lantus Solostar Pen] 40 units SQ QAM Dicyclomine HCl 20 mg PO BID Aspirin [Redwood Aspirin EC] 81 mg PO DAILY Cetirizine HCl 10 mg PO DAILY EPINEPHrine (Auto Inject) [Epipen] 0.3 mg IM ONCE PRN PRN Reason: Anaphylaxis Pioglitazone [Actos] 15 mg PO DAILY Losartan [Cozaar] 100 mg PO DAILY Pregabalin [Lyrica] 100 mg PO BID 30 Days #60 cap Discharge Medication List Aspirin [Redwood Aspirin EC] 81 mg PO DAILY 01/31/24 [History] Cholecalciferol [Vitamin D3 (25 Mcg = 1000 Iu)] 1 tab PO DAILY 01/31/24 [History] Dicyclomine HCl 20 mg PO BID 01/31/24 [History] Dulaglutide [Trulicity] 0.75 mg SQ Q7D 01/31/24 [History] Dupilumab [Dupixent Pen] 300 mg SQ Q14D 01/31/24 [History] Insulin Glargine,Hum.rec.anlog [Lantus Solostar Pen] 40 units SQ QAM 01/31/24 [History] Insulin Lispro [humaLOG Kwikpen] 10 units SQ BID 01/31/24 [History] Magnesium 1 tab PO HS PRN 01/31/24 [History] Metoprolol Succinate (ER) [Toprol XL] 100 mg PO HS 01/31/24 [History] Pantoprazole [Protonix] 1 tab PO HS 01/31/24 [History] Albuterol Inhaler [Ventolin Hfa Inhaler] 90 mcg IH DAILY PRN 03/08/24 [History] Cetirizine HCl 10 mg PO DAILY 03/08/24 [History] EPINEPHrine (Auto Inject) [Epipen] 0.3 mg IM ONCE PRN 03/08/24 [History] Ezetimibe [Zetia] 10 mg PO DAILY 03/08/24 [History] Pioglitazone [Actos] 15 mg PO DAILY 03/08/24 [History] Losartan [Cozaar] 100 mg PO DAILY 08/27/24 [History] Empagliflozin [Jardiance] 25 mg PO DAILY 11/20/24 [History] Pregabalin [Lyrica] 100 mg PO BID 30 Days #60 cap 11/20/24 [Rx] Cyclobenzaprine [Flexeril] 5 mg PO TID PRN #40 tablet 11/28/24 [Rx] Sennosides/Docusate Sodium [Senna Plus 8.6-50 mg Tablet] 2 each PO DAILY PRN #20 tab 11/28/24 [Rx] metroNIDAZOLE [Flagyl] 500 mg PO BID #10 tab 11/28/24 [Rx] oxyCODONE HCL/ACETAMINOPHEN [Percocet 7.5-325 mg] 1 tab PO Q4HR PRN #40 tab 11/28/24 [Rx] Follow up Appointment(s)/Referral(s): [facility], [NON-STAFF] - As Needed Ramirez Dong DO [Doctor of Osteopathic Medicine] - 2 Weeks Activity/Diet/Wound Care/Special Instructions: Spine Discharge and Recovery Instructions Date of Surgery: 11/25/2024 Diagnosis: Cervical spondylosis with stenosis Procedure: C2-T2 decompression and fusion Medications: See medication list All medication refills should be obtained through your primary care doctor or your clinic spine surgeon. Please discuss prescription refills at your follow up appointment. Do not call the hospital for medication refills. Activity: Encourage ambulation with assist of walker, Up and about 6-8x daily PT/OT daily work on balance, strength and mobility Up in chair with all meals Shower daily Brace: Use brace when up and about, do not wear in bed or shower Dressing: Leave your dressing in place for a total of 3 days post operatively. Then you may remove your dressing and leave open to air. Keep the area clean and if not able to keep area clean, then cover with sterile gauze and tape. Showering: You may shower 3 days after your procedure allowing soap and water to run over incision. Do not scrub. Do not soak. Blot dry. Follow up: Please confirm a follow up appointment with your surgeon 2 weeks post operatively. Please make an appointment to follow up with your PCP in 1-2 weeks after surgery for evaluation '3 phase, 3-week plan' POST OP WEEKS 1-3 1. Lifting/carrying/pushing/pulling limited to less than 5 pounds. 2. Do not sit for longer than 15 minutes at one time. Get up and walk around. Prolonged sitting is NOT advised. If you lay down, see if you can tolerate laying down on you front (belly side) 3. Walk for periods of 15 minutes = 1 mile but no longer; do it multiple times times each day. 4. Ice your low back after activity. POST OP WEEKS 3-6 1. Lifting limited to less than 20 pounds. 2. Do not sit for longer than 30 minutes at a time. Frequently change positions. Use a sit-to stand workstation or take frequent breaks from sitting if you have returned to work. 3. Walk for 30 minutes each day. If possible, do these three or more times a day POST OP WEEKS 6+ At your 6-week appointment we will give you a physical therapy referral to focus on a core stabilization and strengthening program. You should also work on leg & buttock strengthening, hamstring & quadriceps stretching, and continue a low impact aerobic activity program such as swimming, walking, or riding a stationary bicycle. During the initial 6 weeks after your surgery, you are at the highest risk of re-injuring your spine. You should generally avoid BLT's (bending, lifting and twisting combination motions) and follow the above guidelines to reduce the chance of reinjury. You can anticipate post op appointments in our office at approximately 3 weeks and 6 weeks after your surgery. INCISION CARE: If your incision is not draining you do NOT need to cover it with a dressing. Keep your incision clean, dry and intact. In most cases, we apply skin glue, christ or sutures to the incision at the time of surgery. This will be like a crust or have the appearance of a scab and will fall off in time on its own. The stitches or christ need to be removed at 3 weeks post op appointment. You may begin to shower 3 days after surgery (this allows the glue to ramos well). However, please avoid scrubbing the incision site or peeling off any of the skin glue. This will ensure optimal healing of your incision. Also, during this time avoid soaking the incision area in water - this includes swimming pools, hot tubs or baths. No ointments, lotions or oils on the incision until your surgeon allows. Leave christ, sutures or glue in place. Neurological dysfunction that comes on suddenly can also be a sign of a stroke. Below some common symptoms of a stroke are listed: B - balance difficulty such as sudden onset walking or leaning to one side - NEW E - eye problem such as sudden double vision or trouble seeing on one side - NEW F - Facial weakness or numbness on one side - NEW A - Arm or leg weakness or numbness on one side - NEW S - Slurred speech or difficulty with word finding - NEW T - Time is BRAIN! Call 911 as soon as you recognize these symptoms Diet: Consume a regular diet rich in vegetables and lean protein such as chicken or fish. You should consume in a ratio of approximately 20% fats|40% carbohydrates|40%protein. Vegetables, sweet potatoes, brown rice or quinoa are examples of good carbohydrates. Chips, white bread, cookies and sweets/sugar are examples of bad carbohydrates. Limit your bad carbs, go wild with good carbs. "Life's Simple 7" Guidelines as per [place] [employer] These will help you reclaim your life after surgery and dry cleaner helper in your recovery, keeping in mind your restrictions. (1) Get Active. Physical activity can help people lose weight, control high blood pressure and cholesterol, feel emotionally better, and sleep better. (2) Control Cholesterol. Avoid a diet high in saturated fat, trans fat, & cholesterol. Limit whole milk & cream, ice cream, butter, egg yolks, processed meats (like sausage and hot dogs), and fatty meats. Choose healthy foods that are low in saturated fat, trans fat and cholesterol which include: Fruits and vegetables, fiber rich grain products (like whole grain pasta and brown rice), lean meat such as chicken, fish, nuts, seeds, and legumes. (3) Eat Better. Eat small portions. Shop at the grocery with a list and do not stray from it. Tips for a healthy diet include: Limit sodium intake to less than 1500mg daily, avoid prepackaged, processed, and fast foods, choose a diet rich in fruits, vegetables, and whole grain, high fiber foods, and limit saturated & cholesterol in your diet. (4) Manage Blood Pressure. If you have high blood pressure, you should have a cuff at home so that you can check your blood pressure regularly. Be sure you have a good cuff. An arm one is generally better than a wrist one. Bring the cuff to a doctor's appointment to validate that the measurements that your cuff are taking are accurate. Take your blood pressure twice daily when you are sitting down and relaxing. Record the numbers in a log and bring this log with you to your doctors' appointments. (5) Lose Weight if your BMI is above 25. A healthy BMI is between 19-25. To calculate Your BMI, you may use a Standard BMI Calculator on the NIH BMI website: <www.nhlbi.nih.gov/guidelines/obesity/BMI/bmicalc.htm>. Weigh oneself daily. If you are overweight, set a goal to lose weight. A pound a week loss if needed is a good target. (6) Reduce Blood Sugar. Limit foods and liquids with "added sugars." (Added sugars include sucrose, fructose, glucose, maltose, dextrose, high fructose corn syrup, corn syrup, concentrated fruit juice and honey). (7) Stop Smoking. If you smoke, quitting smoking is one of the best things that you can do for your health. Smoking increases your risk of heart attack, stroke, and peripheral vascular disease, which is a build-up of plaque in your arteries. Please discard all the cigarettes and lighters in your house. Have a plan for what you will do when you have the urge to smoke. Direct and second- hand smoke shortens your life as well as the lives of your family, friends and others around you. For your health and the health of those around you, please consider quitting! Proper Bending Body Mechanics: Maintain a wide stance with one foot slightly in front of the other. Keep your back straight. Bend utilizing the strength in your hips and knees. Do not bend at the waist. Maintain the lifted object at your waist-level close to your body. Avoid lifting weight that causes immediately pain or pain anywhere in the body afterwards. Smoking/Nicotine If there was ever one thing that you could do to increase your overall health, decrease your risk of cardiovascular problems by about 39% the second you make the choice, it is to STOP SMOKING. Your body's most instant gratification is the second you stop smoking. We have all heard the studies, read the articles but it is true, smoking is extremely bad for your overall health, and moreover it is detrimental to your bone health. Nicotine, IN ANY FORM, kills bone cells, prevents your body from healing fractures, and significantly prolongs healing after surgery. In spine surgery specifically, it increases your risk of not healing your bones to create a fus ion and increases your risk of having a revision surgery due to this up to 60%. I know it is hard. I know it feels impossible. But there are ways. Take control of your life. We are here to help you through it. And when you are ready, ask us and we can direct you to help if you desire. Use the START Plan to Quit Smoking (please visit the Helpguide.org website listed below for more information): S = Set a quit date. Choose a date within the next 2 weeks, so you have enough time to prepare without losing your motivation to quit. If you mainly smoke at work, quit on the weekend, so you have a few days to adjust to the change. T = Tell family, friends, and co-workers that you plan to quit. Let your friends and family in on your plan to quit smoking and tell them you need their support and encouragement to stop. Look for a quit andrés who wants to stop smoking as well. You can help each other get through the rough times. A = Anticipate and plan for the challenges you'll face while quitting. Most people who begin smoking again do so within the first 3 months. You can help yourself make it through by preparing ahead for common challenges, such as nicotine withdrawal and cigarette cravings. R = Remove cigarettes and other tobacco products from your home, car, and work. Throw away all your cigarettes (no emergency pack!), lighters, ashtrays, and matches. Wash your clothes and freshen up anything that smells like smoke. Shampoo your car, clean your drapes and carpet, and steam your furniture. T = Talk to your doctor about getting help to quit. Your doctor can prescribe medication to help with withdrawal and suggest other alternatives. If you can't see a doctor, you can get many products over the counter at your local pharmacy or grocery store, including the nicotine patch, nicotine lozenges, and nicotine gum. Resources for Quitting Smoking: <https://www.[place].gov/documents/[facility]/Quit_Tobacco_Resources_for_patients_31 3480_7.pdf> Supplementation: Take recommended dosages of Vitamin D and Calcium to help fortify your bones and help them to heal. See your health maintenance packet for dosages and recommended levels. DVT/VTE prophylaxis: You will be given compression stockings from the hospital. Wear these daily for the first two weeks after surgery. You may take them off at night. You may be prescribed a medication to help thin your blood. Take this as directed. If you are not prescribed this medication, early and frequent ambulation has been shown to be the best prophylaxis to deep vein thrombosis and sequelae related to this event. Discharge Disposition: HOME WITH HOME HEALTH SERVICES
[2024-11-28] MEDS: ASPIRIN 81 MG PO SCH (08:52)
[2024-11-28] MEDS: MAGNESIUM HYDROXIDE 2,400 MG/30 ML CUP PO PRN (09:57)
== END 2024-11-28 11:55 | disposition home health service (06) | DRG 304 ==
LOC: 2ORMAIN 07:59 → 4SSUR 15:42
PROVIDERS: ADMIT Orthopaedic Surgery; ATTEND Orthopaedic Surgery
PROC: 0RG4071 Fusion of Cervicothoracic Vertebral Joint with Autologous Tissue Substitute, Posterior Approach, Posterior Column, Open Approach (ICD-10-PCS; 2024-11-25)
PROC: 0RG6071 Fusion of Thoracic Vertebral Joint with Autologous Tissue Substitute, Posterior Approach, Posterior Column, Open Approach (ICD-10-PCS; 2024-11-25)
PROC: 00NW0ZZ Release Cervical Spinal Cord, Open Approach (ICD-10-PCS; 2024-11-25)
PROC: 00NX0ZZ Release Thoracic Spinal Cord, Open Approach (ICD-10-PCS; 2024-11-25)
PROC: 0RG2071 Fusion of 2 or more Cervical Vertebral Joints with Autologous Tissue Substitute, Posterior Approach, Posterior Column, Open Approach (ICD-10-PCS; principal; 2024-11-25 09:45)
DX: M48.02 Spinal stenosis, cervical region (principal); M47.12 Other spondylosis with myelopathy, cervical region; I10 Essential (primary) hypertension; M47.22 Other spondylosis with radiculopathy, cervical region; E78.5 Hyperlipidemia, unspecified; J44.9 Chronic obstructive pulmonary disease, unspecified; M40.202 Unspecified kyphosis, cervical region; E11.9 Type 2 diabetes mellitus without complications; Z87.891 Personal history of nicotine dependence; Z79.82 Long term (current) use of aspirin; Z79.4 Long term (current) use of insulin; Z88.1 Allergy status to other antibiotic agents; Z88.0 Allergy status to penicillin; Z88.2 Allergy status to sulfonamides; Z88.8 Allergy status to other drugs, medicaments and biological substances; Z79.84 Long term (current) use of oral hypoglycemic drugs; Z79.899 Other long term (current) drug therapy
CPT/HCPCS: 72040; 72125; 80048; 83036; 85025; 94640